=== PATIENT | female | born 1945 | race Caucasian/White ===

== ENCOUNTER 2025-01-14 12:58 | Inpatient (IN) ==
--- NOTE | 2025-01-14 13:17 | Emergency Department Note ---
HPI - Skin/Abscess/Foreign Bdy General Chief complaint: Extremity Injury, Lower Stated complaint: leg infection Time Seen by Provider: 01/14/25 13:02 Source: patient Mode of arrival: Wheelchair Limitations: physical limitation History of Present Illness HPI narrative: 79-year-old female presents to ER from her primary care provider's office for lower leg cellulitis with edema and weeping, patient reports she has had this going on for quite some time and her last round of antibiotics wears approximately 1 month ago. MD complaint: Reports discoloration Onset (ago): month(s) Tetanus up to date: no Location: Reports LLE and RLE Severity: moderate Quality: Reports burning and aching Pain Consistency: Reports constant Relieving factors: Reports none Exacerbating factors: Reports palpation and movement Context: Reports other (Problem) Associated symptoms: Reports arthralgias and myalgias Treatments prior to arrival: Reports antibiotic Related Data Home Medications Medication Instructions Recorded Confirmed allopurinol 300 mg tablet 300 mg PO DAILY 04/25/24 clopidogrel 75 mg tablet 75 mg PO DAILY 04/25/2405/15 metformin 500 mg tablet 500 mg PO DAILY 04/25/24 omeprazole 20 mg capsule,delayed 20 mg PO DAILY 06/02/24 release paroxetine HCl 40 mg tablet 40 mg PO DAILY 04/25/24 potassium chloride 10 mEq 10 meq PO DAILY 04/25/24 tablet,extended release rosuvastatin 20 mg tablet 20 mg PO DAILY 04/25/2405/15 digoxin 125 mcg (0.125 mg) tablet 0.125 mg PO DAILY 06/02/24 clindamycin HCl 300 mg capsule 300 mg PO BID 06/02/24 06/02/24 doxycycline hyclate 100 mg tablet 100 mg PO Q12H 06/0206/02/24 levothyroxine 25 mcg tablet 25 mcg PO DAILY 06/02/24 1 losartan 25 mg tablet 25 mg PO DAILY 06/02/2405/15 rosuvastatin 40 mg tablet 40 mg PO .hs 06/02/24 triamcinolone acetonide 0.1 % 1 applic topical DAILY 1 06/02/24 topical cream Previous Rx's Medication Instructions Recorded furosemide 40 mg tablet 40 mg PO BID Liver cirrhosis 30 04/30/24 days #60 tabs Allergies Allergy/AdvReac Type Severity Reaction Status Date / Time aspirin Allergy Unknown Verified 01/14/25 13:09 hydrocodone Allergy Unknown Verified 01/14/25 13:09 levofloxacin (From Levaquin) Allergy Unknown Verified 01/14/25 13:09 lidocaine Allergy Unknown Verified 01/14/25 13:09 Penicillins Allergy Unknown Verified 01/14/25 13:09 Sulfa (Sulfonamide Allergy Unknown Verified 01/14/25 13:09 Antibiotics) steroids Allergy Unknown Uncoded 01/14/25 13:09 Review of Systems Status of ROS 10 or more systems reviewed and unremark able except as noted in history and below Musculoskeletal Reports: extremity pain and extremity swelling Integumentary/Breast Reports: redness, skin pain, skin tenderness, new lesion and non-healing lesion Psychiatric Reports: anxiety PFSH PFSH Medical History Anasarca 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 Non-prescribed substance use: denies use What is your current living situation: I presently have a place to live Problems where you live: no known problems In the past 12 months, utilities in danger of being shut off: no Highest level of school completed/degree received: high school Feel stressed/tense/nervous/anxious/difficulty sleeping: not at all Life stressors: other Life stressor details: n/a Due to disability, difficulty making decisions: No Exam Constitutional: normal general appearance, distress noted (moderate), average body habitus, no limitations and alert Vital Signs - 24 hr 01/14/25 13:02 01/14/25 13:30 01/14/25 14:00 Temperature 98.7 F Pulse Rate 96 H 88 87 Respiratory Rate 20 Blood Pressure 148/56 146/55 144/52 Pulse Oximetry 98 Oxygen Delivery Me thod Room Air 01/14/25 14:30 01/14/25 15:30 Temperature Pulse Rate 86 88 Respiratory Rate 20 Blood Pressure 145/57 138/65 Pulse Oximetry 98 Oxygen Delivery Me thod HENMT: normocephalic, head/scalp atraumatic, hearing grossly abnormal (Patient extremely hard of hearing), external ears normal, external nose normal, oral mucous membranes normal, oropharynx normal, dentition abnormal (caries) and gingiva normal Eyes: PERRL, EOMs intact bilaterally, conjunctivae normal, no scleral icterus, no papilledema, normal visual orozco by confrontation, alignment normal, periorbital findings normal and no nystagmus Neck/C-Spine: visual inspection normal, trachea midline, cervical spine nontender, cervical full ROM noted, supple and no meningeal signs Lymph: no lymphadenopathy noted and no lymphedema noted Chest: inspection of chest normal Respiratory: breath sounds equal bilaterally, normal respiratory effort, clear to auscultation bilaterally, no wheezes, no rales, no retractions and no use of accessory muscles Cardiovascular: normal heart rate noted, regular rhythm noted, no gallop, no JVD, peripheral pulses 2+ throughout and no additional abnormal heart sounds Gastrointestinal: abdomen normal to inspection, abdomen soft to palpation, tender to palpation (Diffuse pain) (mild), nondistended, normoactive bowel sounds, hepatosplenomegaly noted (hepatomegaly), no masses, no pulsatile mass and ascites noted (soft) Genitourinary: no CVA tenderness and bladder normal to palpation Back/Pelvis: spine normal to inspection and lumbar spine tenderness noted Patient has chronic back pain from previous back injury. Extremities: normal to inspection, normal to palpation, tenderness noted, full ROM, no joint enlargement and no deformity Bilateral lower leg edema with cellulitis and weeping of the legs. Neurology: groutman II-XII intact, no movement abnormality noted, no focal motor deficit noted, no sensory deficits noted, gait abnormality noted (unable to access), speech normal, coordination normal, no pronator drift noted, no fasciculations noted and GCS normal Psychiatry: Mental Status Exam documented within this Exam's Psych section mental status grossly normal, oriented x3 (Patient is alert and oriented ), t hought process normal, cooperative, affect normal and psychomotor activity normal Feel stressed/tense/nervous/anxious/difficulty sleeping: not at all Life stressor details: n/a Skin: skin color normal, no rash, no lesions, no ecchymosis noted, no wounds, no lacerations, skin turgor normal, no jaundice, no petechiae, no mottling, nails normal and no alopecia Course Course Hospital Course: 79-year-old female presented ER from her primary care provider's office with complaint of bilateral lower leg edema and cellulitis with weeping has been evaluated by physical exam, wound culture, CBC, CMP, urinalysis, EKG, and plain film chest x-ray results as noted in charting. Patient's CMP reveals hypoalbuminemia at 1.9, hypoproteinemia of 5.6, no anion gap at 2.0, and there are noted weeping lesions to bilateral legs with erythema noted. Patient does have distal pulses and MANAGER STRATEGIC is intact patient reports that she does not have any help at home. [facility], albumin replacement, antibiotic therapy, and socially responsible investment adviser consult. Patient is aware of treatment plan and agrees with it. Vital Signs Vital signs: Vital Signs Temperature 98.7 F 01/14/25 13:02 Pulse Rate 96 H 01/14/25 13:02 Respiratory Rate 20 01/14/25 13:02 Blood Pressure 148/56 01/14/25 13:02 Pulse Oximetry 98 01/14/25 13:02 Oxygen Delivery Method Room Air 01/14/25 13:02 Temperature 98.7 F 01/14/25 13:02 Pulse Rate 88 01/14/25 15:30 Respiratory Rate 01/14/25 15:30 Blood Pressure 138/65 01/14/25 15:30 Pulse Oximetry 98 01/14/25 15:30 Oxygen Delivery Method Room Air 01/14/25 13:02 Discharge Plan Discharge Patient Disposition: Admitted As Observation Condition: Stable Clinical Impression: Cellulitis of both lower extremities, Atrial fibrillation, Hypoalbuminemia, Hypoproteinemia Time of Disposition: 15:55 MDM - Skin/Abscess/Foreign Bod MDM Narrative Medical decision making narrative: Medical Decision Making this patient based on physical exam, presentation of wound, CBC, CMP, urinalysis, wound culture, EKG, plain film chest x-ray, and urinalysis. Differential Diagnosis Differential diagnosis: Likely abscess of skin or subcutaneous tissue, viral exanthem, herpes zoster, cellulitis, insect bites and contact dermatitis Medical Records Attestation: I reviewed the patient's medical records. Lab Data Attestation: I reviewed the patient's lab results. Labs: Lab Results 01/14/25 01/14/25 Range/Units 13:15 14:00 WBC 7.6 (4.3-9.3) K/uL RBC 4.4 (4.00-5.50) M/uL Hgb 11.7 L (12.5-15.8) gm/dL Hct 37.1 (35.9-46.7) % MCV 85.4 (81.0-93.7) fl MCH 26.8 L (27.6-32.2) pg MCHC 31.4 L (33.1-35.3) g/dl RDW 17.5 H (11.4-14.2) % Plt Count 257 (152-353) K/uL MPV 9.0 (6.9-10.8) fl Gran % 73.6 H (47.8-71.3) % Lymph % (Auto) 9.7 L (20.0-43.0) % [place] % (Auto) 8.3 (3.6-9.8) % Eos % (Auto) 7.3 H (0.4-2.8) % Baso % (Auto) 1.1 H (0.1-0.85) Lymph # (Auto) 0.7 L (1.1-3.1) [place] # (Auto) 0.6 L (1.1-3.1) Eos # (Auto) 0.6 H (0.0-0.2) Baso # (Auto) 0.1 (0.0-0.1) Absolute Gran (auto) 5.6 (2.3-6.0) Sodium 142 (136-145) mmol/L Potassium 4.0 (3.6-5.2) mmol/L Chloride 108.0 H (98-107) mmol/L Carbon Dioxide 32 (21-32) mmol/L Anion Gap 2.0 L (4-14) mEq/L BUN 18 (7-18) mg/dL Creatinine 1.3 (0.6-1.3) mg/dL Estimated GFR 41.6 (>59.9) Glucose 76 (70-110) mg/dL Lactic Acid 1.4 (0.27-1.43) mmol/L Calcium 8.0 L (8.5-10.1) mg/dL Total Bilirubin 0.27 (0.0-1.0) mg/dL AST 29 (15-37) U/L ALT 20 L (30-65) U/L Alkaline Phosphatase 152 H (50-136) U/L Total Protein 5.6 L (6.4-8.2) g/dL Albumin 1.9 L (3.4-5.0) g/dL Urine Color Yellow (STRAW/YELL.) Urine Appearance Clear (CLEAR) Ur Specific [place] 1.015 (1.001-1.035) Urine Protein Negative (NEGATIVE) Urine Glucose (UA) Normal (NORMAL) Urine Ketones Negative (NEGATIVE) Urine Occult Blood Negative (NEG - TRACE) Urine Nitrite Negative (NEGATIVE) Urine Bilirubin Negative (NEGATIVE) Urine Urobilinogen Normal (NORMAL) Ur Leukocyte Esterase Negative (NEGATIVE) Fluid pH 6.0 (5 - 9) Imaging Data Imaging ordered: Chest x-ray Attestation: I have reviewed the pertinent imaging results. Radiologist's impression: EXAM: XR CHEST 1V HISTORY: dyspneadyspnea; COMPARISON: April 25, 2024 FINDINGS: The trachea is midline. The cardiac silhouette is mildly enlarged with aortic valve prosthesis in place. Mild diffuse interstitial lung disease is seen unchanged. The rest of lungs are clear without focal infiltrate or effusion. The bony thorax is unremarkable. IMPRESSION: No acute cardiopulmonary disease. THIS IS AN ELECTRONICALLY VERIFIED FINAL REPORT 01/14/2025 1:42 PM - Electronically signed by Travis Arias MD ECG Data Attestation: I have reviewed the pertinent ECG results. Interpretation: Atrial fibrillation RR 603 QT 377 QRS 133 T -38 Rate controlled at 99
[2025-01-14 13:20] LABS: Basophils #(Absolute) Auto 0.1 (0.0-0.1); Basophils%(Percent) Auto 1.1 (0.1-0.85); Eosinophils#(Absolute)Auto 0.6 (0.0-0.2); Eosinophils%(Percent) Auto 7.3 % (0.4-2.8); Granulocytes % - Auto 73.6 % (47.8-71.3); Granulocytes#(Absolute)- Auto 5.6 (2.3-6.0); Hematocrit 37.1 % (35.9-46.7); Mean Corpuscular Volume 85.4 fl (81.0-93.7); Monocytes #(Absolute)- Auto 0.6 (1.1-3.1); Monocytes %(Percent)- Auto 8.3 % (3.6-9.8); Platelet Count 257 K/uL (152-353); White Blood Count 7.6 K/uL (4.3-9.3)
[2025-01-14 14:49] LABS: Specific Gravity Urine 1.015 (1.001-1.035); Urine Appearance CLEAR (CLEAR); Urine Blood NEGATIVE (NEG - TRACE); Urine Color YELLOW (STRAW/YELL.); Urine Urobilinogen Normal (NORMAL)
[2025-01-14] MEDS ORDERED: ONDANSETRON HCL/PF 4 MG/2 ML VIAL INJ PRN (16:38)
[2025-01-14] MEDS ORDERED: DOCUSATE SODIUM 100 MG CAPSULE PO PRN (16:38)
[2025-01-14] MEDS ORDERED: MAGNESIUM, ALUMINUM HYDROXIDE 30 ML ORAL.SUSP PO PRN (16:38)
[2025-01-14] MEDS: 0.9 % SODIUM CHLORIDE 1000 ML 1,000 ML IV SCH (16:56)
[2025-01-14] MEDS: CLINDAMYCIN PHOSPHATE/D5W 300 MG/50 ML PIGGYBACK IV SCH (16:56)
[2025-01-14] MEDS: ALBUMIN HUMAN 25% 100 ML IV SCH (18:26)
[2025-01-14] MEDS: ACETAMINOPHEN 500 MG TABLET PO PRN (20:50)
[2025-01-15 05:34] LABS: Basophils #(Absolute) Auto 0.1 (0.0-0.1); Basophils%(Percent) Auto 1.1 (0.1-0.85); Eosinophils#(Absolute)Auto 0.6 (0.0-0.2); Eosinophils%(Percent) Auto 10.7 % (0.4-2.8); Granulocytes % - Auto 63.7 % (47.8-71.3); Granulocytes#(Absolute)- Auto 3.4 (2.3-6.0); Hematocrit 32.6 % (35.9-46.7); Mean Corpuscular Volume 84.4 fl (81.0-93.7); Monocytes #(Absolute)- Auto 0.7 (1.1-3.1); Monocytes %(Percent)- Auto 12.1 % (3.6-9.8); Platelet Count 189 K/uL (152-353); White Blood Count 5.4 K/uL (4.3-9.3)
[2025-01-15] MEDS: PANTOPRAZOLE SODIUM 40 MG TABLET.DR PO SCH (09:13)
[2025-01-15] MEDS: CLOPIDOGREL BISULFATE 75 MG TABLET PO SCH (10:24)
[2025-01-15] MEDS: LOSARTAN POTASSIUM 50 MG TABLET PO SCH (11:30)
[2025-01-15] MEDS: FUROSEMIDE 40 MG TABLET PO SCH (11:30)
[2025-01-15] MEDS: POTASSIUM CHLORIDE 10 MEQ CAPSULE.ER PO SCH (11:31)
[2025-01-15] MEDS: ALLOPURINOL 100 MG TABLET PO SCH (11:31)
[2025-01-15] MEDS: DIGOXIN 125 MCG TABLET PO SCH (11:31)
[2025-01-15] MEDS: PARoxetine HCL 20 MG TABLET PO SCH (11:32)
--- NOTE | 2025-01-15 13:05 | History & Physical Report ---
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 Non-prescribed substance use: denies use What is your current living situation: I presently have a place to live Problems where you live: no known problems In the past 12 months, utilities in danger of being shut off: no Highest level of school completed/degree received: high school Feel stressed/tense/nervous/anxious/difficulty sleeping: not at all Life stressors: other Life stressor details: n/a Due to disability, difficulty making decisions: No Meds Home Medications and Allergies Home Medications Medication Instructions Recorded Confirmed Type allopurinol 300 mg tablet 300 mg PO DAILY 04/25/2411/06 History clopidogrel 75 mg tablet 75 mg PO DAILY 04/25/2411/06 History metformin 500 mg tablet 500 mg PO DAILY 04/25/2411/06 History omeprazole 20 mg capsule,delayed 20 mg PO DAILY 01/15/25 History release paroxetine HCl 40 mg tablet 40 mg PO DAILY 04/25/24 History potassium chloride 10 mEq 10 meq PO BID 04/25/2401/15 History tablet,extended release digoxin 125 mcg (0.125 mg) tablet 0.125 mg PO DAILY 01/15/25 History furosemide 40 mg tablet 40 mg PO BID Liver cirrhosis 30 04/30/24 01/15/25 Rx days #60 tabs levothyroxine 25 mcg tablet 25 mcg PO DAILY 06/02/24 0 01/15/25 History losartan 25 mg tablet 25 mg PO DAILY 06/02/24 06/11/06 History rosuvastatin 40 mg tablet 40 mg PO .hs 06/02/24 History Allergies Allergy/AdvReac Type Severity Reaction Status Date / Time aspirin Allergy Unknown Verified 01/14/25 13:09 hydrocodone Allergy Unknown Verified 01/14/25 13:09 levofloxacin (From Levaquin) Allergy Unknown Verified 01/14/25 13:09 lidocaine Allergy Unknown Verified 01/14/25 13:09 Penicillins Allergy Unknown Verified 01/14/25 13:09 Sulfa (Sulfonamide Allergy Unknown Verified 01/14/25 13:09 Antibiotics) steroids Allergy Unknown Uncoded 01/14/25 13:09 Exam Constitutional: Vital Signs - 24 hr 01/14/25 13:30 01/14/25 14:00 01/14/25 14:30 Temperature Pulse Rate 88 87 86 Pulse Rate [Left] Respiratory Rate Blood Pressure 146/55 144/52 145/57 Blood Pressure [Ri ght Arm] Pulse [facility]xim[facility] 01/14/[facility] 15:30 01/14/25 16:30 01/14/25 17:01 Temperature Pulse Rate 88 88 Pulse Rate [Left] 102 H Respiratory Rate 20 20 18 Blood Pressure 138/65 141/68 Blood Pressure [Ri ght Arm] Pulse Oximetry [address] [facility] 01/14/25 17:03 01/14/25 17:56 01/14/25 20:00 Temperature 98.8 F Pulse Rate 87 86 Pulse Rate [Left] 99 H Respiratory Rate 21 Blood Pressure 142/69 139/66 Blood Pressure [Ri ght Arm] 137/62 Pulse Oximetry [address] [facility] 01/14/25 23:35 01/15/25 03:45 01/15/25 08:00 Temperature 98.6 F 98.3 F 97.8 F Pulse Rate Pulse Rate [Left] 98 H 53 L 87 Respiratory Rate 19 18 18 Blood Pressure Blood Pressure [Ri ght Arm] 104/59 99/54 123/56 Pulse Oximetry 94 L 96 94 L Oxygen Delivery Me thod Room Air Room Air Room Air 01/15/25 11:30 01/15/25 11:31 01/15/25 12:00 Temperature 97.7 F Pulse Rate 87 Pulse Rate [Left] 85 Respiratory Rate 17 Blood Pressure 123/56 Blood Pressure [Ri ght Arm] 117/60 Pulse Oximetry 96 Oxygen Delivery Me thod Room Air Assessment and Plan Assessment and Plan (1) Cellulitis of both lower extremities: Code(s): L03.115 - Cellulitis of right lower limb; L03.116 - Cellulitis of left lower limb (2) Acquired lymphedema of leg: Code(s): I89.0 - Lymphedema, not elsewhere classified (3) HTN (hypertension): Qualifiers: Hypertension type: primary hypertension Qualified Code(s): I10 - Essential (primary) hypertension Code(s): I10 - Essential (primary) hypertension Plan Admit VS q4hrs 2000 ADA NS @75ml/hr Bactrim DS po BID BLE US Clarita boots Echo CBC BMP in AM Results Labs Labs: CBC 01/14/25 01/15/25 Range/Units 13:15 05:20 WBC 7.6 5.4 (4.3-9.3) K/uL RBC 4.4 3.9 L (4.00-5.50) M/uL Hgb 11.7 L 10.4 L (12.5-15.8) gm/dL Hct 37.1 32.6 L (35.9-46.7) % Plt Count 257 189 (152-353) K/uL Gran % 73.6 H 63.7 (47.8-71.3) % Lymph % (Auto) 9.7 L 12.4 L (20.0-43.0) % [place] % (Auto) 8.3 12.1 H (3.6-9.8) % Eos % (Auto) 7.3 H 10.7 H (0.4-2.8) % Baso % (Auto) 1.1 H 1.1 H (0.1-0.85) Lymph # (Auto) 0.7 L 0.7 L (1.1-3.1) [place] # (Auto) 0.6 L 0.7 L (1.1-3.1) Eos # (Auto) 0.6 H 0.6 H (0.0-0.2) Baso # (Auto) 0.1 0.1 (0.0-0.1) Absolute Gran (auto) 5.6 3.4 (2.3-6.0) CMP 01/14/25 13:15 Sodium 142 Potassium 4.0 Chloride 108.0 H Carbon Dioxide 32 BUN 18 Creatinine 1.3 Glucose 76 Calcium 8.0 L Liver Function 01/14/25 Range/Units 13:15 Total Bilirubin 0.27 (0.0-1.0) mg/dL AST 29 (15-37) U/L ALT 20 L (30-65) U/L Alkaline Phosphatase 152 H (50-136) U/L Albumin 1.9 L (3.4-5.0) g/dL Urine 01/14/25 14:00 Urine Color Yellow Urine Appearance Clear Ur Specific [place] 1.015 Urine Protein Negative Urine Glucose (UA) Normal Imaging Imaging ordered: Venous US Radiologist's impression: [place] [address] Ultrasound Report Signed Patient: Kortney Miranda MR#: [id number] : 1945 Acct:[id number] Age/Sex: 79 / F ADM Date: 01/14/25 Loc: [place] 1109-[address]: Eugenio BHAKTA Ordering Physician: Prem Alonzo NP Date of Service: 01/15/25 Procedure(s): US venous duplex LE Accession Number(s): [id number] cc: Eugenio Eid~ EXAM: Bilateral lower extremity venous Doppler evaluation HISTORY: Bilateral lower extremity edema TECHNIQUE: Multiple grayscale sonographic images were obtained. Color duplex Doppler evaluation was performed. COMPARISON: 04/25/2024 FINDINGS: Bilaterally the common femoral veins, superficial femoral veins, popliteal veins, and posterior tibial veins are patent demonstrating normal flow, compression, and distal augmentation. Incidental note is made of a 4.3 x 1.5 by 3 cm right-sided popliteal fossa cyst. Trace fluid is present in the left popliteal fossa. IMPRESSION: Exam negative for deep venous thrombosis bilateral lower extremities 4.3 x 1.5 x 3 cm right-sided popliteal cyst THIS IS AN ELECTRONICALLY VERIFIED FINAL REPORT 01/15/2025 12:35 PM - Electronically signed by Andrew Plascencia MD Patient: Kortney Miranda MR#: [id number] : 1945 Acct:[id number] Age/Sex: 79 / F ADM Date: 01/14/25 Loc: ED Attending Dr: Ordering Physician: Matthew Rice NP Date of Service: 01/14/25 Procedure(s): XR chest 1V Accession Number(s): [id number] cc: Matthew iRce NP~ EXAM: XR CHEST 1V HISTORY: dyspneadyspnea; COMPARISON: April 25, 2024 FINDINGS: The trachea is midline. The cardiac silhouette is mildly enlarged with aortic valve prosthesis in place. Mild diffuse interstitial lung disease is seen unchanged. The rest of lungs are clear without focal infiltrate or effusion. The bony thorax is unremarkable. IMPRESSION: No acute cardiopulmonary disease. THIS IS AN ELECTRONICALLY VERIFIED FINAL REPORT 01/14/2025 1:42 PM - Electronically signed by Travis Arias MD Dictated By: Travis Arias M.D. Signed By: 01/14/25 1342
[2025-01-15] MEDS: LEVOTHYROXINE SODIUM 50 MCG TABLET PO SCH (15:50)
[2025-01-15] MEDS: ATORVASTATIN CALCIUM 40 MG TABLET PO SCH (20:56)
[2025-01-15] MEDS ORDERED: ROSUVASTATIN 40 MG PO SCH (21:00)
[2025-01-16 05:33] LABS: Basophils #(Absolute) Auto 0.1 (0.0-0.1); Basophils%(Percent) Auto 1.4 (0.1-0.85); Eosinophils#(Absolute)Auto 0.7 (0.0-0.2); Eosinophils%(Percent) Auto 13.6 % (0.4-2.8); Granulocytes % - Auto 62.3 % (47.8-71.3); Granulocytes#(Absolute)- Auto 3.4 (2.3-6.0); Hematocrit 36.3 % (35.9-46.7); Mean Corpuscular Volume 84.4 fl (81.0-93.7); Monocytes #(Absolute)- Auto 0.6 (1.1-3.1); Monocytes %(Percent)- Auto 11.1 % (3.6-9.8); Platelet Count 215 K/uL (152-353); White Blood Count 5.5 K/uL (4.3-9.3)
[2025-01-16] MEDS: PANTOPRAZOLE SODIUM 40 MG TABLET.DR PO SCH (08:02)
[2025-01-16] MEDS ORDERED: OMEPRAZOLE 20 MG PO SCH (09:00)
[2025-01-16] MEDS ORDERED: diphenhydrAMINE HCL 25 MG CAP PO PRN (11:20)
[2025-01-16] MEDS: MEROPENEM IV SCH (11:57)
[2025-01-16] MEDS: SODIUM CHLORIDE MB 0.9% IV SCH (11:57)
[2025-01-16] MEDS: diphenhydrAMINE HCL 25 MG CAP PO PRN (11:58)
--- NOTE | 2025-01-16 22:14 | Progress Note ---
Progress Note: Subjective Subjective Interval history: 79 yo female admitted on 01/14/[address] Dorado's office with worsening BLE edema and weeping for several days not responding to typical OP treatment for cellulitis to BLE. Patient notes that this is cyclic secondary to chronic lymphedema and chronic hypoalbuminemia. 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 Her PCP has been treating with ciprofloxacin and no improvement. I was able to obtain a culture and sensitivity report from her admission finding Pseudomonas aueruginosa susceptiple to meropenum. We will need to dose her at 500mg q8h. I also noted a pencillin allergy listed, patient states that she has previous attained blister on her skin and severe itching from PCN. I explained to patient that there are some minimal potential risk but will dose her with H1/H2 blockers prior to all treatments and she agreed to risk it. She denies any prior responses such as angioedema or anaphylaxis. We augmented her pain medication to a non-opioid starting with Ofirmev 1Gm IV. I am stopping the clindamycin this afternoon. Labs also indicated an acute but likely persistent hypoalbuminemia requiring supplement replacement. This certainly could be directly attributed to the BLE weeping and will need replacement. She also has Clarita Boots that were applied yesterday and is responding very well as to comfort. Exam Constitutional: normal general appearance and no apparent distress Vital Signs - 24 hr 01/15/25 23:32 01/16/25 03:37 01/16/25 07:40 Temperature 98.0 F 97.7 F 97.6 F Pulse Rate [Left] 56 L 76 85 Respiratory Rate 17 16 19 Blood Pressure [Ri ght Arm] 103/59 102/53 108/56 Pulse Oximetry 93 L 95 94 L Oxygen Delivery Me thod Room Air Room Air Room Air 01/16/25 11:54 01/16/25 16:00 01/16/25 20:00 Temperature 98 F 97.9 F 97.8 F Pulse Rate [Left] 85 87 84 Respiratory Rate 19 19 19 Blood Pressure [Ri ght Arm] 118/61 106/50 133/55 Pulse Oximetry 95 96 97 Oxygen Delivery Me thod Room Air Room Air Room Air HENMT: normocephalic and head/scalp atraumatic Eyes: PERRL and EOMs intact bilaterally Neck/C-Spine: visual inspection normal, trachea midline, supple and no meningeal signs Lymph: no lymphadenopathy noted Chest: inspection of chest normal Respiratory: breath sounds equal bilaterally and normal respiratory effort Cardiovascular: normal heart rate noted, regular rhythm noted, no gallop, no rub, no murmur and no JVD Gastrointestinal: abdomen normal to inspection and abdomen soft to palpation obese Back/Pelvis: spine normal to inspection and no paraspinal muscle tenderness noted Extremities: BLE - chronic lymphedema with UnaBoots in place. Gross exam of toes and peripheral blood shows warm, non-tender toes both feet with no mottling or silvano a. I did not removed the dressings to examine, toes were warm, dry, healthy, good NV function, blanching, warm, not ulcerated. Neurology: brick off bearer II-XII intact, no movement abnormality noted and GCS normal Psychiatry: mental status grossly normal, oriented x3, cooperative and affect normal Feel stressed/tense/nervous/anxious/difficulty sleeping: not at all Skin: skin color normal, no rash and skin turgor normal Progress Note: Objective Labs Labs: CBC 01/16/25 Range/Units 05:10 WBC 5.5 (4.3-9.3) K/uL RBC 4.3 (4.00-5.50) M/uL Hgb 11.4 L (12.5-15.8) gm/dL Hct 36.3 (35.9-46.7) % Plt Count 215 (152-353) K/uL Gran % 62.3 (47.8-71.3) % Lymph % (Auto) 11.6 L (20.0-43.0) % [place] % (Auto) 11.1 H (3.6-9.8) % Eos % (Auto) 13.6 H (0.4-2.8) % Baso % (Auto) 1.4 H (0.1-0.85) Lymph # (Auto) 0.6 L (1.1-3.1) [place] # (Auto) 0.6 L (1.1-3.1) Eos # (Auto) 0.7 H (0.0-0.2) Baso # (Auto) 0.1 (0.0-0.1) Absolute Gran (auto) 3.4 (2.3-6.0) CMP 01/16/25 05:10 Sodium 140 Potassium 4.0 Chloride 108.0 H Carbon Dioxide 25 BUN 26 H Creatinine 1.3 Glucose 97 Calcium 7.8 L Urine 01/14/25 14:00 Urine Color Yellow Urine Appearance Clear Ur Specific [place] 1.015 Urine Protein Negative Urine Glucose (UA) Normal Pulse Oximetry SpO2 results: 97% RA Attestation: I have reviewed the pertinent pulse oximetry results. Imaging Venous US: Attestation: I have reviewed the pertinent imaging results. Radiologist's impression: NAD Progress Note: A&P Assessment and Plan (1) Cellulitis of both lower extremities: (2) Acquired lymphedema of leg: (3) HTN (hypertension): Qualifiers: Hypertension type: primary hypertension Qualified Code(s): I10 - Essential (primary) hypertension Plan Admit VS q4hrs 1999 ADA NS @75ml/hr DC Bactrim DS, change to meropenum 500mg q8h with Benadryl 25mg IV prior to each dose continue Clarita boots CBC BMP in AM Fall Risk Details [place] Fall Scale Risk Level: Moderate Fall Risk Current Medications: Current Medications Acetaminophen (Acetaminophen 500 Mg Tablet) 1,000 mg PO Q6H PRN PRN Reason: MILD PAIN SCALE 1-4 Last Admin: 01/16/25 13:50 Dose: 1,000 mg Allopurinol (Allopurinol 100 Mg Tablet) 300 mg PO DAILY [facility] Last Admin: 01/16/25 08:02 Dose: 300 mg Atorvastatin Calcium (Atorvastatin Calcium 40 Mg Tablet) 80 mg PO BEDTIME [facility] Last Admin: 01/16/25 20:37 Dose: 80 mg Clopidogrel Bisulfate (Clopidogrel Bisulfate 75 Mg Tablet) 75 mg PO DAILY [facility] Last Admin: 01/16/25 08:03 Dose: 75 mg Digoxin (Digoxin 125 Mcg Tablet) 125 mcg PO DAILY [facility] Last Admin: 01/16/25 08:02 Dose: 125 mcg Diphenhydramine HCl (Diphenhydramine Hcl 25 Mg Cap) 25 mg PO Q8H PRN PRN Reason: prophylaxis Last Admin: 01/16/25 20:37 Dose: 25 mg Docusate Sodium (Docusate Sodium 100 Mg Capsule) 100 mg PO DAILY PRN PRN Reason: Constipation Furosemide (Furosemide 40 Mg Tablet) 40 mg PO BID [facility] Last Admin: 01/16/25 20:37 Dose: 40 mg Sodium Chloride (Sodium Chloride) 1,000 mls @ 75 mls/hr IV CONT [facility] Last Admin: 01/16/25 20:35 Dose: Not Given Meropenem 1,000 mg/ Sodium (Chloride) 50 mls @ 100 mls/hr IV Q8H [facility] Last Infusion: 01/16/25 21:07 Dose: Infused Insulin Human Regular (Insulin Regular, Human 100 Unit/Ml) 0 unit SUBQ ACHS PRN; Protocol PRN Reason: Blood Pressure - High Levothyroxine Sodium (Levothyroxine Sodium 50 Mcg Tablet) 25 mcg PO DAILY [facility] Last Admin: 01/16/25 08:02 Dose: 25 mcg Losartan Potassium (Losartan Potassium 50 Mg Tablet) 25 mg PO DAILY [facility] Last Admin: 01/16/25 08:02 Dose: 25 mg Magnesium Hydroxide (Magnesium, Aluminum Hydroxide 30 Ml Oral.Susp) 30 ml PO DAILY PRN PRN Reason: Heartburn Ondansetron HCl (Ondansetron Hcl/Pf 4 Mg/2 Ml Vial) 4 mg INJ Q6H PRN PRN Reason: Nausea And Vomiting Pantoprazole Sodium (Pantoprazole Sodium 40 Mg Tablet.Dr) 40 mg PO QDAC [facility] Last Admin: 01/16/25 08:02 Dose: 40 mg Paroxetine HCl (Paroxetine Hcl 20 Mg Tablet) 40 mg PO DAILY [facility] Last Admin: 01/16/25 08:02 Dose: 40 mg Potassium Chloride (Potassium Chloride 10 Meq Capsule.Er) 10 meq PO BID [facility] Last Admin: 01/16/25 20:37 Dose: 10 meq Time Spent With Patient Time: Total time spent is greater than 50% in coordination of care (as documented) at patient's floor/unit and/or counseling patient: Time with patient: greater than 35 minutes
[2025-01-17 05:55] LABS: Basophils #(Absolute) Auto 0.1 (0.0-0.1); Basophils%(Percent) Auto 1.1 (0.1-0.85); Eosinophils#(Absolute)Auto 0.7 (0.0-0.2); Eosinophils%(Percent) Auto 10.7 % (0.4-2.8); Granulocytes#(Absolute)- Auto 4.5 (2.3-6.0); Hematocrit 32.6 % (35.9-46.7); Mean Corpuscular Volume 84.1 fl (81.0-93.7); Monocytes #(Absolute)- Auto 0.6 (1.1-3.1); Monocytes %(Percent)- Auto 8.9 % (3.6-9.8); Platelet Count 205 K/uL (152-353); White Blood Count 6.5 K/uL (4.3-9.3)
[2025-01-17 06:14] VITALS: RESP 19
[2025-01-17 08:36] VITALS: TEMP 97.6
--- NOTE | 2025-01-17 10:13 | Discharge Summary ---
DS: Providers Provider Date of admission: 01/14/25 16:57 Primary care physician: Loretta Neal NP Consults: 01/14/25 16:43 Consult to Case Management Routine Comment: Consulting Provider: Physician Instructions: Reason for consultation: Need for home health nursing to assist with wound care Has provider been notified: Yes 01/17/25 09:45 Consult to Home Health Routine Comment: Consulting Provider: Physician Instructions: Reason for consultation: sang boots DS: Diagnosis Discharge Diagnosis (1) Cellulitis of both lower extremities: (2) Acquired lymphedema of leg: (3) HTN (hypertension): Qualifiers: Hypertension type: primary hypertension Qualified Code(s): I10 - Essential (primary) hypertension DS: Summary Hospital Course Hospital Course: Ms. Miranda was admitted on 01/14/25 from the ED referred from PCP for cellulitis of lower extremities with edema and weeping. Patient was started on clindamycin in ED and wound cultures taken. Labs and vitals unremarkable throughout her stay. Patient was started on unaboots for BLE edema. BLE doppler was negative for dvt. Cultures were positive for pseudomonas and patient was placed on meropenem. She does have multiple allergies. Patient was started on antihistamines and placed on cipro for discharge for C&S due to potential allergy to cipro with her history of rash from levaquin. Patient to follow with PCP in 1 week. Advise to seek different insurance coverage at her current plan does not fit her needs. Time spent discussing smoking cessation with patient: more than 10 minutes Status at Discharge Functional status at discharge: independent ambulation Overall status at discharge: patient is progressing back to baseline Time Spent with Patient Time attestation: Total time spent providing and/or coordinating discharge services: 35min Time spent: greater than 30 minutes Exam Constitutional: normal general appearance and no apparent distress Vital Signs - 24 hr 01/16/25 11:54 01/16/25 16:00 01/16/25 20:00 Temperature 98 F 97.9 F 97.8 F Pulse Rate [Left] 85 87 84 Respiratory Rate 19 19 19 Blood Pressure [Ri ght Arm] 118/61 106/50 133/55 Pulse Oximetry 95 96 97 Oxygen Delivery Me thod Room Air Room Air Room Air 01/17/25 00:00 01/17/25 04:00 01/17/25 08:00 Temperature 96.9 F L 97.2 F L 97.6 F Pulse Rate [Left] 83 88 87 Respiratory Rate 20 19 19 Blood Pressure [Ri ght Arm] 128/68 113/54 122/62 Pulse Oximetry 98 95 95 Oxygen Delivery Me thod Room Air Room Air Room Air HENMT: normocephalic and head/scalp atraumatic Eyes: PERRL and EOMs intact bilaterally Neck/C-Spine: visual inspection normal, trachea midline, supple and no meningeal signs Lymph: no lymphadenopathy noted Chest: inspection of chest normal Respiratory: breath sounds equal bilaterally and normal respiratory effort Cardiovascular: normal heart rate noted, regular rhythm noted, no gallop, no rub, no murmur and no JVD Gastrointestinal: abdomen normal to inspection and abdomen soft to palpation obese Back/Pelvis: spine normal to inspection and no paraspinal muscle tenderness noted Extremities: BLE - chronic lymphedema with UnaBoots in place. Gross exam of toes and peripheral blood shows warm, non-tender toes both feet with no mottling or edema. 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, no movement abnormality noted and GCS normal Psychiatry: mental status grossly normal, oriented x3, cooperative and affect normal Feel stressed/tense/nervous/anxious/difficulty sleeping: not at all Skin: skin color normal, no rash and skin turgor normal DS: Data Data Completed and Pending Labs on day of discharge: Labs from last 24 hours 01/17/25 05:50 WBC 6.5 RBC 3.9 L Hgb 10.4 L Hct 32.6 L MCV 84.1 MCH 26.9 L MCHC 32.0 L RDW 17.2 H Plt Count 205 MPV 8.9 Gran % 69.0 Lymph % (Auto) 10.3 L [place] % (Auto) 8.9 Eos % (Auto) 10.7 H Baso % (Auto) 1.1 H Lymph # (Auto) 0.7 L [place] # (Auto) 0.6 L Eos # (Auto) 0.7 H Baso # (Auto) 0.1 Absolute Gran (auto) 4.5 Discharge Plan Discharge Disposition: Home, Self-Care Condition: Stable Discharge Medications: New famotidine 20 mg Tablet 20 mg PO BID Qty: 20 0RF Zyrtec 10 mg capsule 10 mg PO DAILY Qty: 14 0RF ciprofloxacin HCl 500 mg tablet 500 mg PO BID Qty: 14 0RF Continued allopurinol 300 mg tablet 300 mg PO DAILY clopidogrel 75 mg tablet 75 mg PO DAILY metformin 500 mg tablet 500 mg PO DAILY omeprazole 20 mg capsule,delayed release(DR/EC) 20 mg PO DAILY paroxetine HCl 40 mg tablet 40 mg PO DAILY potassium chloride 10 mEq tablet extended release 10 meq PO BID digoxin 125 mcg (0.125 mg) tablet 0.125 mg PO DAILY furosemide 40 mg tablet 40 mg PO BID 30 Days Qty: 60 0RF levothyroxine 25 mcg tablet 25 mcg PO DAILY losartan 25 mg tablet 25 mg PO DAILY rosuvastatin 40 mg tablet 40 mg PO .hs Discharge Orders: Discharge Order (Routine); Ordered 01/17/25 Ordered By: Prem Alonzo Patient Instructions: Cellulitis (ED) Forms: Portal/Health Info Access Inst Follow-Ups: Loretta Neal NP [Primary Care Provider, Medical] - 01/22/25 2:15 pm
[2025-01-17] MEDS: CETIRIZINE HCL 10 MG TABLET PO SCH (11:24)
[2025-01-17] MEDS: CIPROFLOXACIN HCL 500 MG TABLET PO SCH (11:25)
[2025-01-17] MEDS: FAMOTIDINE 20 MG TABLET PO ONE (11:25)
[2025-01-17 12:16] VITALS: BP 143/70; PULSE 85
[2025-01-17] MEDS ORDERED: FAMOTIDINE 20 MG TABLET PO SCH (21:00)
[2025-01-17] MEDS ORDERED: CIPROFLOXACIN HCL 500 MG TABLET PO SCH (21:00)
== END 2025-01-17 13:19 | disposition home or self-care (01) | DRG 603 ==
LOC: MS 12:58 → ED 12:58 → OBSVTOIN 16:57 → MS 17:57
PROVIDERS: ADMIT Nurse Practitioner Family; ATTEND Physician Assistant Medical
DX: E78.5 Hyperlipidemia, unspecified; Z88.5 Allergy status to narcotic agent; I50.9 Heart failure, unspecified; E87.20 Acidosis, unspecified; I11.0 Hypertensive heart disease with heart failure; F41.9 Anxiety disorder, unspecified; K21.9 Gastro-esophageal reflux disease without esophagitis; Z88.1 Allergy status to other antibiotic agents; E11.9 Type 2 diabetes mellitus without complications; Z79.899 Other long term (current) drug therapy; K75.81 Nonalcoholic steatohepatitis (NASH); Z88.0 Allergy status to penicillin; I25.10 Atherosclerotic heart disease of native coronary artery without angina pectoris; L03.115 Cellulitis of right lower limb; M10.9 Gout, unspecified; I48.91 Unspecified atrial fibrillation; E88.09 Other disorders of plasma-protein metabolism, not elsewhere classified; B96.5 Pseudomonas (aeruginosa) (mallei) (pseudomallei) as the cause of diseases classified elsewhere; Z88.8 Allergy status to other drugs, medicaments and biological substances; L03.116 Cellulitis of left lower limb; Z88.2 Allergy status to sulfonamides

== ENCOUNTER 2025-02-03 14:37 | Inpatient (IN) ==
--- NOTE | 2025-02-03 14:54 | Emergency Department Note ---
HPI - Skin/Abscess/Foreign Bdy General Chief complaint: General Complaint Stated complaint: Leg Pain Time Seen by Provider: 02/03/25 14:39 Source: patient Mode of arrival: wheelchair Limitations: no limitations History of Present Illness HPI narrative: 79-year-old female presents to ER with complaint of bilateral lower leg pain, Frequent falls, mild chest discomfort, and CHF exacerbation. MD complaint: Reports discoloration and other (Cellulitis, Frequent falls, chest discomfort) Onset (ago): day(s) Tetanus up to date: yes Location: Reports chest, LLE and RLE Severity: moderate Quality: Reports aching, constant and other (throbbing) Pain Consistency: Reports constant Relieving factors: Reports none Exacerbating factors: Reports palpation and movement Context: Reports recent illness and recent antibiotic Associated symptoms: Reports arthralgias, myalgias, shortness of breath and other (Chest discomfort) Treatments prior to arrival: Reports antibiotic Related Data Home Medications Medication Instructions Recorded Confirmed allopurinol 300 mg tablet 300 mg PO DAILY 04/25/2411/06 clopidogrel 75 mg tablet 75 mg PO DAILY 04/25/2411/06 metformin 500 mg tablet 500 mg PO DAILY 04/25/2411/06 omeprazole 20 mg capsule,delayed 20 mg PO DAILY 01/15/25 release paroxetine HCl 40 mg tablet 40 mg PO DAILY 04/25/24 potassium chloride 10 mEq 10 meq PO BID 04/25/2401/15 tablet,extended release digoxin 125 mcg (0.125 mg) tablet 0.125 mg PO DAILY 01/15/25 levothyroxine 25 mcg tablet 25 mcg PO DAILY 06/02/24 0 01/15/25 losartan 25 mg tablet 25 mg PO DAILY 06/02/2411/06 rosuvastatin 40 mg tablet 40 mg PO .hs 06/02/24 spironolactone 25 mg tablet 25 mg PO BID 02/03/2501/14 Previous Rx's Medication Instructions Recorded furosemide 40 mg tablet 40 mg PO BID Liver cirrhosis 30 04/30/24 days #60 tabs cetirizine 10 mg capsule (Zyrtec) 10 mg PO DAILY #14 c aps 01/17/25 ciprofloxacin HCl 500 mg tablet 500 mg PO BID #14 tabs 01/17/25 famotidine 20 mg tablet 20 mg PO BID #20 tabs Allergies Allergy/AdvReac Type Severity Reaction Status Date / Time aspirin Allergy Unknown Verified 02/03/25 14:55 hydrocodone Allergy Unknown Verified 02/03/25 14:55 levofloxacin (From Levaquin) Allergy Unknown Verified 02/03/25 14:55 lidocaine Allergy Unknown Verified 02/03/25 14:55 Penicillins Allergy Unknown Verified 02/03/25 14:55 Sulfa (Sulfonamide Allergy Unknown Verified 02/03/25 14:55 Antibiotics) steroids Allergy Unknown Uncoded 02/03/25 14:55 Review of Systems Status of ROS 10 or more systems reviewed and unremark able except as noted in history and below Constitutional Reports: fatigue Cardiovascular Reports: chest pain, swelling of feet/ankles, shortness of breath with exertion and shortness of breath when lying down Respiratory Reports: shortness of breath Musculoskeletal Reports: extremity pain, extremity swelling and muscle cramps Integumentary/Breast Reports: skin pain, skin tenderness, skin swelling and sores Neurological Reports: weakness in extremities Psychiatric Reports: anxiety PFSH PFSH Medical History Anasarca 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 Non-prescribed substance use: denies use What is your current living situation: I presently have a place to live Problems where you live: no known problems In the past 12 months, utilities in danger of being shut off: no Highest level of school completed/degree received: high school Feel stressed/tense/nervous/anxious/difficulty sleeping: not at all Life stressors: other Life stressor details: n/a Due to disability, difficulty making decisions: No Exam Constitutional: normal general appearance, distress noted (moderate), abnormal body habitus (obese), no limitations and alert Vital Signs - 24 hr 02/03/25 14:48 02/03/25 15:30 02/03/25 16:30 Temperature 98.2 F Pulse Rate 97 H 92 H 92 H Respiratory Rate 20 20 20 Blood Pressure 132/51 127/61 110/46 Pulse Oximetry 100 97 96 Oxygen Delivery Me thod Room Air Room Air Room Air 02/03/25 17:30 Temperature Pulse Rate 90 Respiratory Rate 20 Blood Pressure 124/60 Pulse Oximetry 97 Oxygen Delivery Me thod Room Air HENMT: normocephalic, head/scalp atraumatic, hearing grossly abnormal (hard of hearing ), external ears normal, external nose normal, oropharynx normal and gingiva normal Eyes: PERRL, EOMs intact bilaterally, conjunctivae normal, no scleral icterus, no papilledema, normal visual orozco by confrontation, alignment normal, periorbital findings normal and no nystagmus Neck/C-Spine: visual inspection normal, trachea midline, cervical spine nontender, cervical full ROM noted, supple and no meningeal signs Lymph: no lymphadenopathy noted and no lymphedema noted Chest: inspection of chest normal Respiratory: breath sounds equal bilaterally, normal respiratory effort, clear to auscultation bilaterally, no wheezes, no rales, no retractions and no use of accessory muscles Cardiovascular: normal heart rate noted, regular rhythm noted, no gallop, no murmur, no JVD, peripheral pulses 2+ throughout and no additional abnormal heart sounds Gastrointestinal: abdomen normal to inspection, abdomen soft to palpation, nontender to palpation, nondistended, normoactive bowel sounds, no hepatosplenomegaly, no masses, no pulsatile mass and no ascites Genitourinary: no CVA tenderness and bladder normal to palpation Back/Pelvis: spine normal to inspection Extremities: normal to inspection, abnormal to palpation, tenderness noted, full ROM, no joint enlargement and no deformity Patient has pain and tenderness to her bilateral lower extremities with noted wounds that are draining, patient has history of cellulitis and upon her last visit the ER wounds were cultured with results as noted in charting. Patient will require IV antibiotics. 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, no movement abnormality noted, no focal motor deficit noted, no sensory deficits noted, gait normal, speech normal, coordination normal, no pronator drift noted, no fasciculations noted and GCS normal Psychiatry: Mental Status Exam documented within this Exam's Psych section mental status grossly normal, oriented x3, thought process normal, cooperative, affect normal, psychomotor activity normal and memory normal Feel stressed/tense/nervous/anxious/difficulty sleeping: not at all Life stressor details: n/a Skin: skin color normal, no rash, no lesions, no ecchymosis noted, no wounds, no lacerations, skin turgor normal, no jaundice, no petechiae, no mottling, nails normal and no alopecia Patient has bilateral lower leg edema with cellulitis and wounds that are weeping daily and dressed with wrap. There is a noted foul smell from the area cultures reveal E. coli growth that is resistant to most oral antibiotics. Course Course Hospital Course: 79-year-old female who presents to ER with complaint of bilateral lower leg edema with weeping and sores, CHF exacerbation, chest discomfort, and arm pain has been evaluated by physical exam, review of medical records, CBC, CMP, EKG, and plain film chest x-ray with results as noted in charting. Patient CBC is unremarkable, CMP shows patient to be hypoalbuminemic, have an elevated BUN indicating dehydration, EKG is unremarkable, plain film chest x-ray shows no acute cardiopulmonary process, and patient's review of medical records indicate patient was just cultured on 31 January from her wounds on her legs showing E. coli growth with resistance to oral antibiotics however susceptibility to Rocephin and Zosyn as well as meropenem. Patient was also seen here on 15 January where Pseudomonas was cultured from wounds and patient was placed on antibiotic therapy then as well. Patient has failed outpatient therapy as wounds continue to smell and drain at this time. Patient will be admitted to the [facility] floor for IV antibiotic therapy, fluid hydration, and albumin replacement. Expected length of stay is equal to or less than 2 midnights with case management consult to set patient up on outpatient IV antibiotic therapy sessions for infusions if transportation can be arranged. Patient has been made aware of treatment plan and agrees with it. Vital Signs Vital signs: Vital Signs Temperature 98.2 F 02/03/25 14:48 Pulse Rate 97 H 02/03/25 14:48 Respiratory Rate 20 02/03/25 14:48 Blood Pressure 132/51 02/03/25 14:48 Pulse Oximetry 100 02/03/25 14:48 Oxygen Delivery Method Room Air 02/03/25 14:48 Temperature 98.2 F 02/03/25 14:48 Pulse Rate 90 02/03/25 17:30 Respiratory Rate 20 02/03/25 17:30 Blood Pressure 124/60 02/03/25 17:30 Pulse Oximetry 97 02/03/25 17:30 Oxygen Delivery Method Room Air 02/03/25 17:30 Discharge Plan Discharge Patient Disposition: Admitted As Observation Condition: Stable Clinical Impression: Cellulitis of both lower extremities, Hypoalbuminemia, Dehydration, Failure of outpatient treatment, Atypical chest pain Time of Disposition: 18:00 MDM - Skin/Abscess/Foreign Bod MDM Narrative Medical decision making narrative: Medical decision making based on physical exam, presentation of wounds, review of medical records, CBC, CMP. Differential Diagnosis Differential diagnosis: Likely abscess of skin or subcutaneous tissue, viral exanthem, cellulitis, contact dermatitis and other (Stasis ulcers, weeping edema) Medical Records Attestation: I reviewed the patient's medical records. Lab Data Attestation: I reviewed the patient's lab results. Lab results narrative: Run Date: 02/03/25 [facility] Page: 1 Run Date: [address] [place] [address] Bunny rAechiga MD Operations And Maintenance Technican Clinical Laboratory Report Name: Kortney Miranda Acct: [id number] Loc: LAB Age/Sex: 79/F : 1945 Status: DEP OUT Reg Dr: Loretta Neal NP . Specimen: [id number] Collected: 01/31/25-1199 Received: 01/31/25 -1331 Source: Leg Rt Sp Descrip: Sub Dr: Loretta Neal NP Other Dr: Can Martinez Comments: RT LOWER LEG FAX [phone] Procedure Result Site Gram Stain Final ML Gram Positive Cocci RARE Gram Negative Rods RARE Epithelial Cells RARE Wound Culture Final ML RESULTS DAY 1: GRAM NEGATIVE RODS ISOLATED ID & SENS TO FOLLOW Organism 1 Escherichia coli E coli [facility] RX --------- --- * Amikacin 4 S * Ampicillin >=32 R * Ampicillin/Sulbactam >=32 R * Cefazolin >=32 R * Cefepime 0.25 S * Cefoxitin >=64 R * Ceftazidime 2 S * Ceftriaxone <=0.25 S * Ciprofloxacin >=4 R * Ertapenem <=0.12 S * Gentamicin <=1 S * Levofloxacin >=8 R * Meropenem <=0.25 S * Tobramycin <=1 S * Piperacillin/Tazobactam 8 S [facility] - [facility] [address] [place] [address] CLIA #: [id number] Bunny Arechiga M.D. Labs: Lab Results 02/03/25 Range/Units 15:45 WBC 6.3 (4.3-9.3) K/uL RBC 4.4 (4.00-5.50) M/uL Hgb 11.5 L (12.5-15.8) gm/dL Hct 36.2 (35.9-46.7) % MCV 82.4 (81.0-93.7) fl MCH 26.2 L (27.6-32.2) pg MCHC 31.8 L (33.1-35.3) g/dl RDW 16.9 H (11.4-14.2) % Plt Count 211 (152-353) K/uL MPV 8.7 (6.9-10.8) fl Gran % 71.2 (47.8-71.3) % Lymph % (Auto) 11.8 L (20.0-43.0) % [place] % (Auto) 9.6 (3.6-9.8) % Eos % (Auto) 6.8 H (0.4-2.8) % Baso % (Auto) 0.6 (0.1-0.85) Lymph # (Auto) 0.7 L (1.1-3.1) [place] # (Auto) 0.6 L (1.1-3.1) Eos # (Auto) 0.4 H (0.0-0.2) Baso # (Auto) 0.0 (0.0-0.1) Absolute Gran (auto) 4.5 (2.3-6.0) Sodium 139 (136-145) mmol/L Potassium 4.6 (3.6-5.2) mmol/L Chloride 104.0 (98-107) mmol/L Carbon Dioxide 28 (21-32) mmol/L Anion Gap 7.0 (4-14) mEq/L BUN 26 H (7-18) mg/dL Creatinine 1.3 (0.6-1.3) mg/dL Estimated GFR 41.6 (>59.9) Glucose 113 H (70-110) mg/dL Calcium 8.0 L (8.5-10.1) mg/dL Total Bilirubin 0.22 (0.0-1.0) mg/dL AST 21 (15-37) U/L ALT 20 L (30-65) U/L Alkaline Phosphatase 112 (50-136) U/L Total Protein 6.1 L (6.4-8.2) g/dL Albumin 2.1 L (3.4-5.0) g/dL Imaging Data Imaging ordered: Chest x-ray Attestation: I personally reviewed and interpreted this imaging study as follows: My impression: No acute cardiopulmonary process ECG Data Attestation: I have reviewed the pertinent ECG results. Interpretation: Sinus rhythm rate 92 Normal P axis Prolonged OH interval RR 656 OH 222 QT 391 P axis 55 QRS 134 T -29 No STEMI
[2025-02-03 15:56] LABS: Basophils%(Percent) Auto 0.6 (0.1-0.85); Eosinophils#(Absolute)Auto 0.4 (0.0-0.2); Eosinophils%(Percent) Auto 6.8 % (0.4-2.8); Granulocytes % - Auto 71.2 % (47.8-71.3); Granulocytes#(Absolute)- Auto 4.5 (2.3-6.0); Hematocrit 36.2 % (35.9-46.7); Mean Corpuscular Volume 82.4 fl (81.0-93.7); Monocytes #(Absolute)- Auto 0.6 (1.1-3.1); Monocytes %(Percent)- Auto 9.6 % (3.6-9.8); Platelet Count 211 K/uL (152-353); White Blood Count 6.3 K/uL (4.3-9.3)
[2025-02-03 16:11] LABS: Potassium 4.6 mmol/L (3.6-5.2)
[2025-02-03] MEDS ORDERED: MAGNESIUM, ALUMINUM HYDROXIDE 30 ML ORAL.SUSP PO PRN (18:33)
[2025-02-03] MEDS ORDERED: ONDANSETRON HCL/PF 4 MG/2 ML VIAL INJ PRN (18:33)
[2025-02-03] MEDS ORDERED: DOCUSATE SODIUM 100 MG CAPSULE PO PRN (18:33)
[2025-02-03] MEDS ORDERED: MEPERIDINE HCL/PF 25 MG/ML SYRINGE IVP PRN (18:38)
[2025-02-03] MEDS ORDERED: PROMETHAZINE HCL 25 MG in 0.9 % SODIUM CHLORIDE 50 ML IV PRN (18:38)
[2025-02-03] MEDS: 0.9 % SODIUM CHLORIDE 1000 ML 1,000 ML IV SCH (20:39)
[2025-02-03] MEDS: SODIUM CHLORIDE MB 0.9% IV SCH (20:40)
[2025-02-03] MEDS: MEROPENEM IV SCH (20:40)
[2025-02-03] MEDS: diphenhydrAMINE HCL 25 MG CAP PO SCH (20:40)
[2025-02-04 05:28] LABS: Basophils #(Absolute) Auto 0.1 (0.0-0.1); Basophils%(Percent) Auto 0.9 (0.1-0.85); Eosinophils#(Absolute)Auto 0.6 (0.0-0.2); Eosinophils%(Percent) Auto 9.1 % (0.4-2.8); Granulocytes % - Auto 68.9 % (47.8-71.3); Granulocytes#(Absolute)- Auto 4.5 (2.3-6.0); Hematocrit 33.9 % (35.9-46.7); Mean Corpuscular Volume 82.1 fl (81.0-93.7); Monocytes #(Absolute)- Auto 0.6 (1.1-3.1); Monocytes %(Percent)- Auto 9.9 % (3.6-9.8); Platelet Count 184 K/uL (152-353); White Blood Count 6.5 K/uL (4.3-9.3)
[2025-02-04 05:40] LABS: Potassium 4.4 mmol/L (3.6-5.2)
[2025-02-04] MEDS: PARoxetine HCL 20 MG TABLET PO SCH (08:12)
[2025-02-04] MEDS: CLOPIDOGREL BISULFATE 75 MG TABLET PO ONE (08:12)
[2025-02-04] MEDS: PANTOPRAZOLE SODIUM 40 MG TABLET.DR PO SCH (08:12)
[2025-02-04] MEDS: LOSARTAN POTASSIUM 50 MG TABLET PO SCH (08:12)
[2025-02-04] MEDS: DIGOXIN 125 MCG TABLET PO SCH (08:12)
[2025-02-04] MEDS: ALLOPURINOL 100 MG TABLET PO SCH (08:12)
[2025-02-04] MEDS: ACETAMINOPHEN 500 MG TABLET PO PRN (10:14)
[2025-02-04] MEDS: CEFTRIAXONE SODIUM 1 GM VIAL IV SCH (12:42)
[2025-02-04] MEDS: CEFTRIAXONE SODIUM 1 GM VIAL IM SCH (12:44)
--- NOTE | 2025-02-04 14:54 | History & Physical Report ---
H&P: HPI History of Present Illness Chief complaint: Leg Pain Narrative: 79-year-old female presents to ER with complaint of bilateral lower leg pain, Frequent falls, mild chest discomfort, and CHF exacerbation. Denies chest pain this am MD complaint: Reports discoloration and other (Cellulitis, Frequent falls, chest discomfort). Denies any fever, chills and is having increasing pain and weakness. No ill contacts Review of Systems 2 Status of ROS 10 or more systems reviewed and unremark able except as noted in history and below Constitutional Reports: fatigue; Denies: fever, chills, change in weight, malaise, night sweats or change in sleep pattern Eyes Denies: change in vision, blurry vision, blind spots, light sensitivity or eye discomfort Ears, nose, mouth, and throat Denies: throat pain, neck pain, throat swelling, difficulty swallowing, hoarseness or mouth pain Cardiovascular Reports: chest pain, edema, swelling of feet/ankles, shortness of breath with exertion and shortness of breath when lying down; Denies: palpitations or lightheadedness Respiratory Reports: shortness of breath; Denies: cough, wheezing, stridor or pain on inspiration Gastrointestinal Reports: nausea and constipation; Denies: abdominal pain, vomiting, coffee grounds in vomit, heartburn, diarrhea, bloating, belching, excessive passing of gas, difficulty swallowing or feeling full early Genitourinary Reports: urinary incontinence; Denies: painful urination, urinary frequency, urinary urgency or blood in urine Musculoskeletal Reports: back pain, extremity pain, extremity swelling, limited range of motion, muscle cramps and muscle weakness; Denies: neck pain, joint pain or joint swelling Integumentary/Breast Reports: rash, skin pain, skin tenderness, skin swelling and sores; Denies: itching or redness Neurological Reports: weakness in extremities and difficulty communicating thoughts; Denies: headache, numbness in extremities, lack of coordination, dizziness, vertigo, confusion or behavioral changes Psychiatric Reports: anxiety; Denies: mood swings, panic attacks, change in sleep pattern, hopelessness, loss of interest, irritability, paranoia or memory loss Endocrine Reports: fatigue; Denies: excessive urination, excessive thirst, cold intolerance or excessive sweating Hematologic/Lymphatic Denies: easy bruising, easy bleeding or enlarged lymph nodes Allergic/Immunologic Denies: hives, throat swelling, tongue swelling or facial swelling PFSH [facility] Medical History (Updated 02/04/25 @ 15:15 by Mai Dorado DO) 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 GERD (gastroesophageal reflux disease) DM (diabetes mellitus), type 2 with peripheral vascular complications Anasarca Lymphadenopathy Diabetes mellitus Kidney stone CHF (congestive heart failure) Gout CAD (coronary artery disease) Depression Anxiety Hyperlipidemia Diabetes HTN (hypertension) Atrial fibrillation Surgical History History of cholecystectomy H/O: hysterectomy Hx of tonsillectomy H/O aortic valve replacement Hx of CABG Social History Smoking status: never smoker Within the past year, how often did you have a drink containing alcohol: never Score interpretation: A score less than 3 is consistent with normal alcohol consumption. Non-prescribed substance use: denies use What is your current living situation: I presently have a place to live Problems where you live: no known problems In the past 12 months, utilities in danger of being shut off: no Highest level of school completed/degree received: decline to answer Feel stressed/tense/nervous/anxious/difficulty sleeping: not at all Life stressors: other Life stressor details: n/a Due to disability, difficulty making decisions: No Gender Identity: female Meds Home Medications and Allergies Home Medications Medication Instructions Recorded Confirmed Type allopurinol 300 mg tablet 300 mg PO DAILY 04/25/24 History clopidogrel 75 mg tablet 75 mg PO DAILY 04/25/2401/14 History metformin 500 mg tablet 500 mg PO DAILY 04/25/24 History omeprazole 20 mg capsule,delayed 20 mg PO DAILY 02/03/25 History release paroxetine HCl 40 mg tablet 40 mg PO DAILY 04/25/24 History potassium chloride 10 mEq 10 meq PO BID 04/25/2402/03 History tablet,extended release digoxin 125 mcg (0.125 mg) tablet 0.125 mg PO DAILY 02/03/25 History furosemide 40 mg tablet 40 mg PO BID Liver cirrhosis 30 04/30/24 02/03/25 Rx days #60 tabs levothyroxine 25 mcg tablet 25 mcg PO DAILY 06/02/24 0 02/03/25 History losartan 25 mg tablet 25 mg PO DAILY 06/02/2401/14 History rosuvastatin 40 mg tablet 40 mg PO .hs 06/02/24 History cetirizine 10 mg capsule (Zyrtec) 10 mg PO DAILY #14 c aps 01/17/25 02/03/25 Rx spironolactone 25 mg tablet 25 mg PO BID 02/03/2501/14 History Allergies Allergy/AdvReac Type Severity Reaction Status Date / Time aspirin Allergy Unknown Verified 02/03/25 14:55 hydrocodone Allergy Unknown Verified 02/03/25 14:55 levofloxacin (From Levaquin) Allergy Unknown Verified 02/03/25 14:55 lidocaine Allergy Unknown Verified 02/03/25 14:55 Penicillins Allergy Unknown Verified 02/03/25 14:55 Sulfa (Sulfonamide Allergy Unknown Verified 02/03/25 14:55 Antibiotics) steroids Allergy Unknown Uncoded 02/03/25 14:55 Exam 2 Constitutional: abnormal general appearance (disheveled) and (chronically ill), no apparent distress, abnormal body habitus (obese), no limitations and alert Vital Signs - 24 hr 02/03/25 15:30 02/03/25 16:30 02/03/25 17:30 Temperature Pulse Rate 92 H 92 H 90 Pulse Rate [Bilate ral] Respiratory Rate 20 20 20 Blood Pressure 127/61 110/46 124/60 Blood Pressure [Le ft Arm] Pulse Oximetry 97 96 [facility] 02/03/25 18:30 02/03/25 19:00 02/03/25 19:41 Temperature Pulse Rate 99 H 91 H 90 Pulse Rate [Bilate ral] Respiratory Rate 20 18 18 Blood Pressure 130/65 122/57 122/57 Blood Pressure [Le ft Arm] Pulse Oximetry 97 96 96 [facility] 02/03/25 20:03 02/03/25 20:30 02/03/25 23:27 Temperature 97.7 F 98.3 F Pulse Rate Pulse Rate [Bilate ral] 97 H 99 H Respiratory Rate 19 17 Blood Pressure Blood Pressure [Le ft Arm] 144/77 118/60 Pulse Oximetry 96 92 L [facility] Air 02/04/25 04:00 02/04/25 08:00 02/04/25 08:00 Temperature 97.5 F L 97.8 F 97.8 F Pulse Rate Pulse Rate [Bilate ral] 90 92 H 92 H Respiratory Rate 18 19 19 Blood Pressure Blood Pressure [Le ft Arm] 126/58 122/62 157/89 Pulse Oximetry 94 L 95 95 Oxygen Delivery Me thod Room Air Room Air Room Air 02/04/25 12:00 Temperature 97.5 F L Pulse Rate Pulse Rate [Bilate ral] 58 L Respiratory Rate 19 Blood Pressure Blood Pressure [Le ft Arm] 123/60 Pulse Oximetry 97 Oxygen Delivery Me thod Room Air HENMT: normocephalic, head/scalp atraumatic, hearing grossly abnormal (hard of hearing ), external ears normal, external nose normal, oropharynx normal, dentition abnormal (uneven teeth and missing teeth) and gingiva normal Eyes: PERRL, EOMs intact bilaterally, conjunctivae normal, no scleral icterus, no papilledema, normal visual [place]roz[place] by confrontation, alignment normal, periorbital findings normal and no nystagmus Neck/C-Spine: visual inspection normal, trachea midline, cervical spine nontender, cervical full ROM noted, supple and no meningeal signs Lymph: no lymphadenopathy noted and no lymphedema noted Chest: inspection of chest normal Respiratory: breath sounds equal bilaterally, normal respiratory effort, clear to auscultation bilaterally, no wheezes, no rales, no retractions and no use of accessory muscles Cardiovascular: normal heart rate noted, regular rhythm noted, no gallop, no murmur, no JVD, peripheral pulses 2+ throughout and no additional abnormal heart sounds Gastrointestinal: abdomen normal to inspection, abdomen soft to palpation, nontender to palpation, nondistended, normoactive bowel sounds, no hepatosplenomegaly, no masses, no pulsatile mass and no ascites Genitourinary: no CVA tenderness and bladder normal to palpation Back/Pelvis: spine normal to inspection Extremities: normal to inspection, abnormal to palpation, tenderness noted, full ROM, no joint enlargement and no deformity Patient has pain and tenderness to her bilateral lower extremities with noted wounds that are draining, patient has history of cellulitis and upon her last visit the ER wounds were cultured with results as noted in charting. Patient will require IV antibiotics. 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, no movement abnormality noted, no focal motor deficit noted, no sensory deficits noted, gait normal, speech normal, coordination normal, no pronator drift noted, no fasciculations noted and GCS normal Psychiatry: Mental Status Exam documented within this Exam's Psych section mental status grossly normal, oriented x3, thought process abnormality noted, cooperative, affect normal, psychomotor abnormality noted (disorganized) and memory normal Feel stressed/tense/nervous/anxious/difficulty sleeping: not at all Life stressor details: n/a Skin: skin color normal, no rash, no lesions, no ecchymosis noted, no wounds, no lacerations, skin turgor normal, no jaundice, no petechiae, no mottling, nails normal and no alopecia Patient has bilateral lower leg edema with cellulitis and wounds that are weeping daily and dressed with wrap. There is a noted foul smell from the area cultures reveal E. coli growth that is resistant to most oral antibiotics. see pictures below. Image: dressing from home health placed on 01/31/2025 dressing and today with odor and removed with the following pictures after shower and scrubbing with Hibiclens Assessment and Plan Assessment and Plan (1) Cellulitis of both lower extremities: Code(s): L03.115 - Cellulitis of right lower limb; L03.116 - Cellulitis of left lower limb (2) Acquired lymphedema of leg: Code(s): I89.0 - Lymphedema, not elsewhere classified (3) Atrial fibrillation: Qualifiers: Atrial fibrillation type: paroxysmal Qualified Code(s): I48.0 - Paroxysmal atrial fibrillation Code(s): I48.91 - Unspecified atrial fibrillation (4) CAD (coronary artery disease): Qualifiers: Coronary Disease-Associated Artery/Lesion type: [place] artery [place] vs. transplanted heart: [place] heart Associated angina: without angina Q ualified Code(s): I25.10 - Atherosclerotic heart disease of [place] coronary artery without angina pectoris Code(s): I25.10 - Atherosclerotic heart disease of [place] coronary artery without angina pectoris (5) HTN (hypertension): Qualifiers: Hypertension type: primary hypertension Qualified Code(s): I10 - Essential (primary) hypertension Code(s): I10 - Essential (primary) hypertension (6) Hypoalbuminemia: Code(s): E88.09 - Other disorders of plasma-protein metabolism, not elsewhere classified (7) DM (diabetes mellitus), type 2 with peripheral vascular complications: Code(s): E11.51 - Type 2 diabetes mellitus with diabetic peripheral angiopathy without gangrene (8) GERD (gastroesophageal reflux disease): Qualifiers: Esophagitis presence: with esophagitis Esophagitis bleeding: without hemorrhage Qualified Code(s): K21.00 - Gastro-esophageal reflux disease with esophagitis, without bleeding Code(s): K21.9 - Gastro-esophageal reflux disease without esophagitis (9) 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: Code(s): K75.81 - Nonalcoholic steatohepatitis (CAZARES); K74.60 - Unspecified cirrhosis of liver (10) Bradycardia: Code(s): R00.1 - Bradycardia, unspecified Plan Hep-Lock patient Rocephin 1 g IV every 12 hours Scrotum clean wound and then apply Unna boot Elevate legs Patient agrees to long-term long term placement Protonix 40 mg p.o. daily resume home medications for fluid and thyroid and BP and Diabetes serial trop and EKG cardiac monitoring Results Labs Labs: CBC 02/03/25 02/04/25 Range/Units 15:45 05:10 WBC 6.3 6.5 (4.3-9.3) K/uL RBC 4.4 4.1 (4.00-5.50) M/uL Hgb 11.5 L 10.9 L (12.5-15.8) gm/dL Hct 36.2 33.9 L (35.9-46.7) % Plt Count 211 184 (152-353) K/uL Gran % 71.2 68.9 (47.8-71.3) % Lymph % (Auto) 11.8 L 11.2 L (20.0-43.0) % [place] % (Auto) 9.6 9.9 H (3.6-9.8) % Eos % (Auto) 6.8 H 9.1 H (0.4-2.8) % Baso % (Auto) 0.6 0.9 H (0.1-0.85) Lymph # (Auto) 0.7 L 0.7 L (1.1-3.1) [place] # (Auto) 0.6 L 0.6 L (1.1-3.1) Eos # (Auto) 0.4 H 0.6 H (0.0-0.2) Baso # (Auto) 0.0 0.1 (0.0-0.1) Absolute Gran (auto) 4.5 4.5 (2.3-6.0) CMP 02/03/25 02/04/25 15:45 05:10 Sodium 139 142 Potassium 4.6 4.4 Chloride 104.0 109.0 H Carbon Dioxide 28 28 BUN 26 H 23 H Creatinine 1.3 1.2 Glucose 113 H 93 Calcium 8.0 L 7.4 L Liver Function 02/03/25 02/04/25 Range/Units 15:45 05:10 Total Bilirubin 0.22 0.30 (0.0-1.0) mg/dL AST 21 19 (15-37) U/L ALT 20 L 15 L (30-65) U/L Alkaline Phosphatase 112 84 (50-136) U/L Albumin 2.1 L 1.7 L (3.4-5.0) g/dL Pulse Oximetry Attestation: I have reviewed the pertinent pulse oximetry results. Imaging Imaging ordered: Chest x-ray Attestation: I have reviewed the pertinent imaging results. Radiologist's impression: Chest pain COMPARISON: 01/11/2025 FINDINGS: Midline sternotomy wires are noted. Exam is limited due to lordotic positioning. No focal consolidation is seen. The heart size is within normal limits. The mediastinum is unremarkable. There is no evidence of pleural effusion or gross pneumothorax. The trachea is midline. IMPRESSION: No focal consolidation is seen. The heart size is normal.
[2025-02-05 05:48] LABS: Basophils #(Absolute) Auto 0.1 (0.0-0.1); Basophils%(Percent) Auto 1.1 (0.1-0.85); Eosinophils#(Absolute)Auto 0.6 (0.0-0.2); Eosinophils%(Percent) Auto 11.6 % (0.4-2.8); Granulocytes % - Auto 64.2 % (47.8-71.3); Granulocytes#(Absolute)- Auto 3.6 (2.3-6.0); Hematocrit 34.1 % (35.9-46.7); Mean Corpuscular Volume 81.7 fl (81.0-93.7); Monocytes #(Absolute)- Auto 0.6 (1.1-3.1); Monocytes %(Percent)- Auto 10.6 % (3.6-9.8); Platelet Count 169 K/uL (152-353); White Blood Count 5.6 K/uL (4.3-9.3)
[2025-02-05 06:36] LABS: Potassium 4.5 mmol/L (3.6-5.2)
[2025-02-05] MEDS: ALBUMIN HUMAN 25% 100 ML IV SCH (09:12)
[2025-02-06 05:18] LABS: Basophils #(Absolute) Auto 0.1 (0.0-0.1); Basophils%(Percent) Auto 1.2 (0.1-0.85); Eosinophils#(Absolute)Auto 0.7 (0.0-0.2); Eosinophils%(Percent) Auto 12.6 % (0.4-2.8); Granulocytes % - Auto 63.8 % (47.8-71.3); Granulocytes#(Absolute)- Auto 3.7 (2.3-6.0); Hematocrit 34.5 % (35.9-46.7); Mean Corpuscular Volume 82.8 fl (81.0-93.7); Monocytes #(Absolute)- Auto 0.6 (1.1-3.1); Monocytes %(Percent)- Auto 10.5 % (3.6-9.8); Platelet Count 173 K/uL (152-353); White Blood Count 5.8 K/uL (4.3-9.3)
[2025-02-06 05:56] LABS: Potassium 4.3 mmol/L (3.6-5.2)
--- NOTE | 2025-02-06 17:28 | Progress Note ---
Progress Note: Subjective Subjective Interval history: Legs still with drainage this am and swollen although not as angry as yesterday. Patient remained afebrile and states both legs are really hurting and stinging. Patient still requesting mcc placement as family will not be able to affordairconditioning and water for her tiny home(shed) on her sisters property. Exam 2 Constitutional: abnormal general appearance (disheveled), (chronically ill) and (frail appearing), no apparent distress, abnormal body habitus (cachectic) and (overweight), limitations noted (behavioral limitations) and other (patients ability to retain and follow directions) and alert Vital Signs - 24 hr 02/05/25 19:43 02/06/25 00:00 02/06/25 04:00 Temperature 97.7 F 97.8 F 97.8 F Pulse Rate [Bilate ral] 86 64 70 Respiratory Rate 20 19 20 Blood Pressure [Le ft Arm] 134/68 116/57 123/57 Pulse Oximetry 95 97 98 Oxygen Delivery Me thod Room Air Room Air Room Air 02/06/25 08:00 02/06/25 11:36 02/06/25 16:00 Temperature 98.5 F 98.8 F 98.0 F Pulse Rate [Bilate ral] 80 79 88 Respiratory Rate 16 18 16 Blood Pressure [Le ft Arm] 128/53 124/47 146/83 Pulse Oximetry 96 95 98 Oxygen Delivery [facility] Room Air Room Air Room Air HENMT: normocephalic, head/scalp atraumatic, hearing grossly abnormal (hard of hearing ), external ears normal, external nose normal, oral mucous membranes normal, oropharynx normal, dentition abnormal (uneven teeth and missing teeth) and gingiva normal Eyes: PERRL, EOMs intact bilaterally, conjunctivae normal, no scleral icterus, papilledema noted, periorbital findings normal and no nystagmus wears glasses Neck/C-Spine: visual inspection normal, trachea midline, cervical spine nontender, cervical full ROM noted, supple and no meningeal signs Lymph: no lymphadenopathy noted and no lymphedema noted Chest: inspection of chest normal and palpation of chest normal Respiratory: breath sounds equal bilaterally, normal respiratory effort, clear to auscultation bilaterally, no wheezes, no rales, no retractions and no use of accessory muscles Cardiovascular: normal heart rate noted, regular rhythm noted, no gallop, no rub, no murmur, no JVD, no clicks, peripheral pulses 2+ throughout and no bruits noted Gastrointestinal: abdomen abnormal to inspection (obese), abdomen soft to palpation, nontender to palpation, nondistended, normoactive bowel sounds, no hepatosplenomegaly, no masses, no pulsatile mass, no ascites and no hernia Genitourinary: no CVA tenderness and bladder normal to palpation Back/Pelvis: spine abnormal to inspection (thoracic kyphosis), no thoracic spine tenderness, no lumbar spine tenderness, thoracic spine ROM abnormal and lumbar spine ROM abnormal Extremities: normal to inspection, abnormal to palpation, tenderness noted, full ROM, no joint enlargement and no deformity Patient has pain and tenderness to her bilateral lower extremities with noted wounds that are draining, patient has history of cellulitis with frequent hospitions 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, no movement abnormality noted, no focal motor deficit noted, sensory deficit noted, deep tendon reflexes as noted:, gait abnormality noted, speech normal, coordination normal, no pronator drift noted, no fasciculations noted and GCS normal Psychiatry: Mental Status Exam documented within this Exam's Psych section mental status grossly normal, oriented x3, thought process abnormality noted, cooperative, affect normal, psychomotor abnormality noted (disorganized) and memory normal Feel stressed/tense/nervous/anxious/difficulty sleeping: not at all Life stressor details: n/a Skin: skin color normal, rash noted, no lesions, ecchymosis noted, wound(s) noted, no lacerations, skin turgor normal, no jaundice, no petechiae, no mottling, nails abnormality noted and no alopecia Patient has bilateral lower leg edema with cellulitis and wounds that are weeping daily and dressed with wrap. There is a noted foul smell from the area cultures reveal E. coli growth that is resistant to most oral antibiotics. see pictures below. Image: dressing from home health placed on 01/31/2025 dressing and today with odor and removed with the following pictures after shower and scrubbing with [place] Progress Note: Objective Labs Labs: CBC 02/06/25 Range/Units 05:00 WBC 5.8 (4.3-9.3) K/uL RBC 4.2 (4.00-5.50) M/uL Hgb 11.0 L (12.5-15.8) gm/dL Hct 34.5 L (35.9-46.7) % Plt Count 173 (152-353) K/uL Gran % 63.8 (47.8-71.3) % Lymph % (Auto) 11.9 L (20.0-43.0) % [place] % (Auto) 10.5 H (3.6-9.8) % Eos % (Auto) 12.6 H (0.4-2.8) % Baso % (Auto) 1.2 H (0.1-0.85) Lymph # (Auto) 0.7 L (1.1-3.1) [place] # (Auto) 0.6 L (1.1-3.1) Eos # (Auto) 0.7 H (0.0-0.2) Baso # (Auto) 0.1 (0.0-0.1) Absolute Gran (auto) 3.7 (2.3-6.0) CMP 02/06/25 05:00 Sodium 142 Potassium 4.3 Chloride 110.0 H Carbon Dioxide 27 BUN 19 H Creatinine 1.0 Glucose 93 Calcium 7.7 L Liver Function 02/06/25 Range/Units 05:00 Total Bilirubin 0.20 (0.0-1.0) mg/dL AST 29 (15-37) U/L ALT 21 L (30-65) U/L Alkaline Phosphatase 94 (50-136) U/L Albumin 2.1 L (3.4-5.0) g/dL Progress Note: A&P Assessment and Plan (1) Cellulitis of both lower extremities: (2) Acquired lymphedema of leg: (3) Atrial fibrillation: Qualifiers: Atrial fibrillation type: paroxysmal Qualified Code(s): I48.0 - Paroxysmal atrial fibrillation (4) CAD (coronary artery disease): Qualifiers: Associated angina: without angina Coronary Disease-Associated Artery/Lesion type: [place] artery [place] vs. transplanted heart: [place] heart Qualified Code(s): I25.10 - Atherosclerotic heart disease of [place] coronary artery without angina pectoris (5) HTN (hypertension): Qualifiers: Hypertension type: primary hypertension Qualified Code(s): I10 - Essential (primary) hypertension (6) Hypoalbuminemia: (7) DM (diabetes mellitus), type 2 with peripheral vascular complications: (8) GERD (gastroesophageal reflux disease): Qualifiers: Esophagitis bleeding: without hemorrhage Esophagitis presence: with esophagitis Qualified Code(s): K21.00 - Gastro-esophageal reflux disease with esophagitis, without bleeding (9) 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 daily resume home medications for fluid and thyroid and BP and Diabetes serial trop and EKG cardiac monitoring BNPeptide Blood culture Lactic acid TSH with am labs leave legs open to air and allow to dry out today and keep elevated Fall Risk Details [place] Fall Scale Risk Level: High Fall Risk Current Medications: Current Medications Acetaminophen (Acetaminophen 500 Mg Tablet) 1,000 mg PO Q6H PRN PRN Reason: MILD PAIN SCALE 1-4 Last Admin: 02/06/25 15:17 Dose: 1,000 mg Allopurinol (Allopurinol 100 Mg Tablet) 300 mg PO ONCE [facility] Last Admin: 02/04/25 08:12 Dose: 300 mg Ceftriaxone Sodium (Ceftriaxone Sodium 1 Gm Vial) 1 gm IV Q12H ROSIE Last Admin: 02/06/25 12:51 Dose: 1 gm Digoxin (Digoxin 125 Mcg Tablet) 125 mcg PO ONCE [facility] Last Admin: 02/04/25 08:12 Dose: 125 mcg Docusate Sodium (Docusate Sodium 100 Mg Capsule) 100 mg PO DAILY PRN PRN Reason: Constipation Promethazine HCl 25 mg/ Sodium (Chloride) 51 mls @ 200 mls/hr IV Q6H PRN PRN Reason: Nausea And Vomiting Losartan Potassium (Losartan Potassium 50 Mg Tablet) 25 mg PO ONCE [facility] Last Admin: 02/04/25 08:12 Dose: 25 mg Magnesium Hydroxide (Magnesium, Aluminum Hydroxide 30 Ml Oral.Susp) 30 ml PO DAILY PRN PRN Reason: Heartburn Ondansetron HCl (Ondansetron Hcl/Pf 4 Mg/2 Ml Vial) 4 mg INJ Q6H PRN PRN Reason: Nausea And Vomiting Pantoprazole Sodium (Pantoprazole Sodium 40 Mg Tablet.Dr) 40 mg PO DAILY [facility] Last Admin: 02/06/25 09:18 Dose: 40 mg Paroxetine HCl (Paroxetine Hcl 20 Mg Tablet) 40 mg PO ONCE [facility] Last Admin: 02/04/25 08:12 Dose: 40 mg Time Spent With Patient Time: Total time spent is greater than 50% in coordination of care (as documented) at patient's floor/unit and/or counseling patient:
--- NOTE | 2025-02-06 17:29 | Progress Note ---
Progress Note: Subjective Subjective Interval history: A 79 year old patient without safe place to stay in the heat no running water or AC and no way of keeping legs well and clean to prevent frequent reinfection. Still awaiting intermediate designer placement for patient safety and health needs Exam 2 Constitutional: abnormal general appearance (chronically ill) and (frail appearing), no apparent distress, abnormal body habitus (cachectic) and (overweight), limitations noted (behavioral limitations) and other (patients ability to retain and follow directions) and alert Vital Signs - 24 hr 02/05/25 19:43 02/06/25 00:00 02/06/25 04:00 Temperature 97.7 F 97.8 F 97.8 F Pulse Rate [Bilate ral] 86 64 70 Respiratory Rate 20 19 20 Blood Pressure [Le ft Arm] 134/68 116/57 123/57 Pulse Oximetry 95 97 98 Oxygen Delivery Me thod Room Air Room Air Room Air 02/06/25 08:00 02/06/25 11:36 02/06/25 16:00 Temperature 98.5 F 98.8 F 98.0 F Pulse Rate [Bilate ral] 80 79 88 Respiratory Rate 16 18 16 Blood Pressure [Le ft Arm] 128/53 124/47 146/83 Pulse Oximetry 96 95 98 Oxygen Delivery Me thod Room Air Room Air Room Air HENMT: normocephalic, head/scalp atraumatic, hearing grossly abnormal (hard of hearing ), external ears normal, external nose normal, oral mucous membranes normal, oropharynx normal, dentition abnormal (uneven teeth and missing teeth) and gingiva normal Eyes: PERRL, EOMs intact bilaterally, conjunctivae normal, no scleral icterus, papilledema noted, periorbital findings normal and no nystagmus wears glasses Neck/C-Spine: visual inspection normal, trachea midline, cervical spine nontender, cervical full ROM noted, supple and no meningeal signs Lymph: no lymphadenopathy noted and no lymphedema noted Chest: inspection of chest normal and palpation of chest normal Respiratory: breath sounds equal bilaterally, normal respiratory effort, clear to auscultation bilaterally, no wheezes, no rales, no retractions and no use of accessory muscles Cardiovascular: normal heart rate noted, regular rhythm noted, no gallop, no rub, no murmur, no JVD, no clicks, peripheral pulses 2+ throughout and no bruits noted Gastrointestinal: abdomen abnormal to inspection (obese), abdomen soft to palpation, nontender to palpation, nondistended, normoactive bowel sounds, no hepatosplenomegaly, no masses, no pulsatile mass, no ascites and no hernia Genitourinary: no CVA tenderness and bladder normal to palpation Back/Pelvis: spine abnormal to inspection (thoracic kyphosis), no thoracic spine tenderness, no lumbar spine tenderness, thoracic spine ROM abnormal and lumbar spine ROM abnormal Extremities: normal to inspection, abnormal to palpation, tenderness noted, full ROM, no joint enlargement and no deformity legs improving forge tender but can tolerate more palpation and cleaning today and not as angry and drainage all but gone today 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, no movement abnormality noted, no focal motor deficit noted, sensory deficit noted, deep tendon reflexes as noted:, gait abnormality noted, speech normal, coordination normal, no pronator drift noted, no fasciculations noted and GCS normal Psychiatry: Mental Status Exam documented within this Exam's Psych section mental status grossly normal, oriented x3, thought process abnormality noted, cooperative, affect normal, psychomotor abnormality noted (disorganized) and memory normal Feel stressed/tense/nervous/anxious/difficulty sleeping: not at all Life stressor details: n/a Skin: skin color normal, rash noted, no lesions, ecchymosis noted, wound(s) noted, no lacerations, skin turgor normal, no jaundice, no petechiae, no mottling, nails abnormality noted and no alopecia Patient has bilateral lower leg edema with wrinkles noted today and barely draining today Image: dressing from home health placed on 01/31/2025 dressing and today with odor and removed with the following pictures after shower and scrubbing with [place] Progress Note: Objective Labs Labs: CBC 02/06/25 Range/Units 05:00 WBC 5.8 (4.3-9.3) K/uL RBC 4.2 (4.00-5.50) M/uL Hgb 11.0 L (12.5-15.8) gm/dL Hct 34.5 L (35.9-46.7) % Plt Count 173 (152-353) K/uL Gran % 63.8 (47.8-71.3) % Lymph % (Auto) 11.9 L (20.0-43.0) % [place] % (Auto) 10.5 H (3.6-9.8) % Eos % (Auto) 12.6 H (0.4-2.8) % Baso % (Auto) 1.2 H (0.1-0.85) Lymph # (Auto) 0.7 L (1.1-3.1) [place] # (Auto) 0.6 L (1.1-3.1) Eos # (Auto) 0.7 H (0.0-0.2) Baso # (Auto) 0.1 (0.0-0.1) Absolute Gran (auto) 3.7 (2.3-6.0) CMP 02/06/25 05:00 Sodium 142 Potassium 4.3 Chloride 110.0 H Carbon Dioxide 27 BUN 19 H Creatinine 1.0 Glucose 93 Calcium 7.7 L Liver Function 02/06/25 Range/Units 05:00 Total Bilirubin 0.20 (0.0-1.0) mg/dL AST 29 (15-37) U/L ALT 21 L (30-65) U/L Alkaline Phosphatase 94 (50-136) U/L Albumin 2.1 L (3.4-5.0) g/dL Progress Note: A&P Assessment and Plan (1) Cellulitis of both lower extremities: (2) Acquired lymphedema of leg: (3) Atrial fibrillation: Qualifiers: Atrial fibrillation type: paroxysmal Qualified Code(s): I48.0 - Paroxysmal atrial fibrillation (4) CAD (coronary artery disease): Qualifiers: Associated angina: without angina Coronary Disease-Associated Artery/Lesion type: [place] artery [place] vs. transplanted heart: [place] heart Qualified Code(s): I25.10 - Atherosclerotic heart disease of [place] coronary artery without angina pectoris (5) HTN (hypertension): Qualifiers: Hypertension type: primary hypertension Qualified Code(s): I10 - Essential (primary) hypertension (6) Hypoalbuminemia: (7) DM (diabetes mellitus), type 2 with peripheral vascular complications: (8) GERD (gastroesophageal reflux disease): Qualifiers: Esophagitis bleeding: without hemorrhage Esophagitis presence: with esophagitis Qualified Code(s): K21.00 - Gastro-esophageal reflux disease with esophagitis, without bleeding (9) 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 daily resume home medications for fluid and thyroid and BP and Diabetes serial trop and EKG cardiac monitoring BNPeptide Blood culture Lactic acid TSH with am labs improving with antibiotics and cleaning and elevation and ceaning the legs and the wounds awaiting intermediate designer placement as insurance declining rehab Fall Risk Details [place] Fall Scale Risk Level: High Fall Risk Current Medications: Current Medications Acetaminophen (Acetaminophen 500 Mg Tablet) 1,000 mg PO Q6H PRN PRN Reason: MILD PAIN SCALE 1-4 Last Admin: 02/06/25 15:17 Dose: 1,000 mg Allopurinol (Allopurinol 100 Mg Tablet) 300 mg PO ONCE [facility] Last Admin: 02/04/25 08:12 Dose: 300 mg Ceftriaxone Sodium (Ceftriaxone Sodium 1 Gm Vial) 1 gm IV Q12H [facility] Last Admin: 02/06/25 12:51 Dose: 1 gm Digoxin (Digoxin 125 Mcg Tablet) 125 mcg PO ONCE [facility] Last Admin: 02/04/25 08:12 Dose: 125 mcg Docusate Sodium (Docusate Sodium 100 Mg Capsule) 100 mg PO DAILY PRN PRN Reason: Constipation Promethazine HCl 25 mg/ Sodium (Chloride) 51 mls @ 200 mls/hr IV Q6H PRN PRN Reason: Nausea And Vomiting Losartan Potassium (Losartan Potassium 50 Mg Tablet) 25 mg PO ONCE [facility] Last Admin: 02/04/25 08:12 Dose: 25 mg Magnesium Hydroxide (Magnesium, Aluminum Hydroxide 30 Ml Oral.Susp) 30 ml PO DAILY PRN PRN Reason: Heartburn Ondansetron HCl (Ondansetron Hcl/Pf 4 Mg/2 Ml Vial) 4 mg INJ Q6H PRN PRN Reason: Nausea And Vomiting Pantoprazole Sodium (Pantoprazole Sodium 40 Mg Tablet.) 40 mg PO DAILY [facility] Last Admin: 02/06/25 09:18 Dose: 40 mg Paroxetine HCl (Paroxetine Hcl 20 Mg Tablet) 40 mg PO ONCE [facility] Last Admin: 02/04/25 08:12 Dose: 40 mg Time Spent With Patient Time: Total time spent is greater than 50% in coordination of care (as documented) at patient's floor/unit and/or counseling patient:
[2025-02-07 07:49] VITALS: BP 143/70
[2025-02-07 11:41] VITALS: PULSE 70; RESP 18; TEMP 98.5
--- NOTE | 2025-02-07 12:03 | Discharge Summary ---
DS: Providers Provider Date of admission: 02/03/25 18:33 Primary care physician: Can Martinez Admitting clinician: Matthew Rice Attending physician on admission: Mai Dorado Consults: 02/03/25 18:38 Consult to Case Management Routine Comment: Consulting Provider: Physician Instructions: patient needs to be set up for outpatient antibiot Reason for consultation: outpatient antibiotic setup Attending physician on discharge: Mai Dorado Discharging clinician: Mai Dorado Anticipated date of discharge: 02/07/25 DS: Diagnosis Discharge Diagnosis (1) Cellulitis of both lower extremities: (2) Acquired lymphedema of leg: (3) Atrial fibrillation: Qualifiers: Atrial fibrillation type: paroxysmal Qualified Code(s): I48.0 - Paroxysmal atrial fibrillation (4) CAD (coronary artery disease): Qualifiers: Associated angina: without angina Coronary Disease-Associated Artery/Lesion type: [place] artery [place] vs. transplanted heart: [place] heart Qualified Code(s): I25.10 - Atherosclerotic heart disease of [place] coronary artery without angina pectoris (5) HTN (hypertension): Qualifiers: Hypertension type: primary hypertension Qualified Code(s): I10 - Essential (primary) hypertension (6) Hypoalbuminemia: (7) DM (diabetes mellitus), type 2 with peripheral vascular complications: (8) GERD (gastroesophageal reflux disease): Qualifiers: Esophagitis bleeding: without hemorrhage Esophagitis presence: with esophagitis Qualified Code(s): K21.00 - Gastro-esophageal reflux disease with esophagitis, without bleeding (9) 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 Patient CBC is unremarkable, CMP shows patient to be hypoalbuminemic, have an elevated BUN indicating dehydration, EKG is unremarkable, plain film chest x-ray shows no acute cardiopulmonary process, and patient's review of medical records indicate patient was just cultured on 31 January from her wounds on her legs showing E. coli growth with resistance to oral antibiotics however susceptibility to Rocephin and Zosyn as well as meropenem. Patient was also seen here on 15 January where Pseudomonas was cultured from wounds and patient was placed on antibiotic therapy then as well. Patient has failed outpatient therapy as wounds continue to smell and drain at this time. [facility] for IV antibiotic therapy, fluid hydration, and albumin replacement. Expected length of stay is equal to or less than 2 midnights with case management consult to set patient up on outpatient IV antibiotic therapy sessions for infusions if transportation can be arranged. Patient has been made aware of treatment plan and agrees with it. Patient with frequent hospitalizations and antibiotic usage seconday to inability to care for herself and daily needs and her health needs. No ac and no water in her home. patient responded to IV antibiotics and cleaning the wound Electrolytes replaced Status at Discharge Functional status at discharge: uses cane/walker Overall status at discharge: patient is progressing back to baseline Time Spent with Patient Time attestation: Total time spent providing and/or coordinating discharge services: 62 minutes Time spent: greater than 30 minutes Exam 2 Constitutional: abnormal general appearance (chronically ill) and (frail appearing), no apparent distress, abnormal body habitus (cachectic) and (overweight), limitations noted (behavioral limitations) and other (patients ability to retain and follow directions) and alert Vital Signs - 24 hr 02/06/25 16:00 02/06/25 19:59 02/06/25 23:19 Temperature 98.0 F 97.3 F L 97.7 F Pulse Rate [Bilate ral] 88 90 96 H Respiratory Rate 16 18 16 Blood Pressure [Le ft Arm] 146/83 132/59 Pulse Oximetry 98 93 L 92 L Oxygen Delivery Nd thod Room Air Room Air Room Air 02/07/25 03:41 02/07/25 07:48 02/07/25 11:40 Temperature 97.6 F 98.0 F 98.5 F Pulse Rate [Bilate ral] 90 105 H 70 Respiratory Rate 19 19 18 Blood Pressure [Le ft Arm] 129/57 143/70 143/70 Pulse Oximetry 93 L 94 L 93 L Oxygen Delivery Nd thod Room Air Room Air Room Air HENMT: normocephalic, head/scalp atraumatic, hearing grossly abnormal (hard of hearing ), external ears normal, external nose normal, oral mucous membranes normal, oropharynx normal, dentition abnormal (uneven teeth and missing teeth) and gingiva normal Eyes: PERRL, EOMs intact bilaterally, conjunctivae normal, no scleral icterus, papilledema noted, periorbital findings normal and no nystagmus wears glasses Neck/C-Spine: visual inspection normal, trachea midline, cervical spine nontender, cervical full ROM noted, supple and no meningeal signs Lymph: no lymphadenopathy noted and no lymphedema noted Chest: inspection of chest normal and palpation of chest normal Respiratory: breath sounds equal bilaterally, normal respiratory effort, clear to auscultation bilaterally, no wheezes, no rales, no retractions and no use of accessory muscles Cardiovascular: normal heart rate noted, regular rhythm noted, no gallop, no rub, no murmur, no JVD, no clicks, peripheral pulses 2+ throughout and no bruits noted Gastrointestinal: abdomen abnormal to inspection (obese), abdomen soft to palpation, nontender to palpation, nondistended, normoactive bowel sounds, no hepatosplenomegaly, no masses, no pulsatile mass, no ascites and no hernia Genitourinary: no CVA tenderness and bladder normal to palpation Back/Pelvis: spine abnormal to inspection (thoracic kyphosis), no thoracic spine tenderness, no lumbar spine tenderness, thoracic spine ROM abnormal and lumbar spine ROM abnormal Extremities: normal to inspection, abnormal to palpation, tenderness noted, full ROM, no joint enlargement and no deformity 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 more palpation and cleaning today and not as angry and no Drainage noted today 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, no movement abnormality noted, no focal motor deficit noted, sensory deficit noted, deep tendon reflexes as noted:, gait abnormality noted, speech normal, coordination normal, no pronator drift noted, no fasciculations noted and GCS normal Psychiatry: Mental Status Exam documented within this Exam's Psych section mental status grossly normal, oriented x3, thought process abnormality noted, cooperative, affect normal, psychomotor abnormality noted (disorganized) and memory normal Feel stressed/tense/nervous/anxious/difficulty sleeping: not at all Life stressor details: n/a Skin: skin color normal, rash noted, no lesions, ecchymosis noted, wound(s) noted, no lacerations, skin turgor normal, no jaundice, no petechiae, no mottling, nails abnormality noted and no alopecia Patient has bilateral lower leg edema with no drainage and scales removed with cleaning today Image: dressing from home health placed on 01/31/2025 dressing and today with odor and removed with the following pictures after shower and scrubbing with Hibiclens DS: Data Data Completed and Pending Labs on day of discharge: Preliminary micro results at discharge 02/04/25 15:55 Blood Culture - Preliminary Blood - Venous Draw (Peripheral) 02/04/25 15:30 Blood Culture - Preliminary Blood - Venous Draw (Peripheral) Discharge Plan [facility] Condition: Improved Anticipated Discharge Date/Time: 02/07/25 12:02 Discharge Medications: Continued allopurinol 300 mg tablet 300 mg PO DAILY clopidogrel 75 mg tablet 75 mg PO DAILY metformin 500 mg tablet 500 mg PO DAILY omeprazole 20 mg capsule,delayed release(DR/EC) 20 mg PO DAILY paroxetine HCl 40 mg tablet 40 mg PO DAILY potassium chloride 10 mEq tablet extended release 10 meq PO BID digoxin 125 mcg (0.125 mg) tablet 0.125 mg PO DAILY furosemide 40 mg tablet 40 mg PO BID 30 Days Qty: 60 0RF levothyroxine 25 mcg tablet 25 mcg PO DAILY losartan 25 mg tablet 25 mg PO DAILY rosuvastatin 40 mg tablet 40 mg PO .hs Zyrtec 10 mg capsule 10 mg PO DAILY Qty: 14 0RF spironolactone 25 mg tablet 25 mg PO BID Patient Comments: TAKE 1 TABLET BY MOUTH TWICE DAILY Discharge Orders: Discharge Order (Routine); Ordered 02/07/25 Ordered By: Mai Dorado Activity: as per physical therapy Diet: diabetic diet and low fat, low cholesterol Hospital Course: 79-year-old female who presents to ER with complaint of bilateral lower leg edema with weeping and sores, CHF exacerbation, chest discomfort, and arm pain has been evaluated by physical exam, review of medical records, CBC, CMP, EKG, and plain film chest x-ray with results as noted in charting. Patient CBC is unremarkable, CMP shows patient to be hypoalbuminemic, have an elevated BUN indicating dehydration, EKG is unremarkable, plain film chest x-ray shows no acute cardiopulmonary process, and patient's review of medical records indicate patient was just cultured on 31 January from her wounds on her legs showing E. coli growth with resistance to oral antibiotics however susceptibility to Rocephin and Zosyn as well as meropenem. Patient was also seen here on 15 January where Pseudomonas was cultured from wounds and patient was placed on antibiotic therapy then as well. Patient has failed outpatient therapy as wounds continue to smell and drain at this time. [facility] for IV antibiotic therapy, fluid hydration, and albumin replacement. Expected length of stay is equal to or less than 2 midnights with case management consult to set patient up on outpatient IV antibiotic therapy sessions for infusions if transportation can be arranged. Patient has been made aware of treatment plan and agrees with it. Patient with frequent hospitalizations and antibiotic usage seconday to inability to care for herself and daily needs and her health needs. No ac and no water in her home. patient responded to IV antibiotics and cleaning the wound Electrolytes replaced Interventions: Discharge Assessment Last Done: 02/07/25 12:12 MED/SURG & ICU Observation Charge Sheet Last Done: 02/07/25 12:12 Print Language: Burkinan Patient Instructions: Dehydration (GEN), Cellulitis (GEN) Forms: Portal/Health Info Access Inst Follow-Ups: Loretta Neal NP [Family Provider, Medical] - 02/12/25 2:15 pm Can Martinez [Primary Care Provider, Medical] Discharge Date/Time: 02/07/25 12:40
== END 2025-02-07 12:40 | DRG 603 ==
LOC: MS 14:37 → ED 14:37 → OBSVTOIN 18:33 → MS 19:42
PROVIDERS: ADMIT Nurse Practitioner Family; ATTEND Family Medicine
DX: Z88.8 Allergy status to other drugs, medicaments and biological substances; E11.51 Type 2 diabetes mellitus with diabetic peripheral angiopathy without gangrene; I11.0 Hypertensive heart disease with heart failure; Z88.2 Allergy status to sulfonamides; I25.10 Atherosclerotic heart disease of native coronary artery without angina pectoris; F32.9 Major depressive disorder, single episode, unspecified; R00.1 Bradycardia, unspecified; I50.9 Heart failure, unspecified; L03.116 Cellulitis of left lower limb; Z95.1 Presence of aortocoronary bypass graft; K21.00 Gastro-esophageal reflux disease with esophagitis, without bleeding; L03.115 Cellulitis of right lower limb; F41.9 Anxiety disorder, unspecified; Z79.84 Long term (current) use of oral hypoglycemic drugs; Z95.2 Presence of prosthetic heart valve; Z91.81 History of falling; Z88.4 Allergy status to anesthetic agent; Z88.6 Allergy status to analgesic agent; E88.09 Other disorders of plasma-protein metabolism, not elsewhere classified; Z88.0 Allergy status to penicillin; Z88.5 Allergy status to narcotic agent; I89.0 Lymphedema, not elsewhere classified; K74.60 Unspecified cirrhosis of liver; K75.81 Nonalcoholic steatohepatitis (NASH); Z79.890 Hormone replacement therapy; I48.0 Paroxysmal atrial fibrillation; Z79.899 Other long term (current) drug therapy; E78.5 Hyperlipidemia, unspecified